=== PATIENT | female | born 1995 | race Caucasian/White ===

== ENCOUNTER → 2023-07-08 15:35 | Outpatient (BNVA) | payer BC, SELFPAY | PROVIDERS: Visit Provider Physician Assistant Surgical ==

== ENCOUNTER → 2023-07-08 15:35 | Outpatient (BNVA) | payer BC, SELFPAY | PROVIDERS: Visit Provider Physician Assistant Surgical ==

== ENCOUNTER 2023-08-04 09:32 | Outpatient (REF) | payer BC, SELFPAY ==
--- NOTE | ~2023-08-04 | XR_ITS ---
EXAMINATION: XR CHEST CLINICAL INFORMATION: Morbid obesity. COMPARISON: None available. TECHNIQUE: 2 views of the chest were obtained. FINDINGS: Normal appearance of the cardiomediastinal silhouette. No focal airspace opacities, pleural effusion or pneumothorax. No acute osseous findings. Visualized upper abdomen is within normal limits. XR/XR chest 2V IMPRESSION: No acute cardiopulmonary findings.
--- NOTE | 2023-08-04 10:30 | ECG_ITS ---
Test Reason : E66.01 Blood Pressure : / mmHG Vent. Rate : 073 BPM Atrial Rate : 073 BPM P-R Int : 140 ms QRS Dur : 100 ms QT Int : 382 ms P-R-T Axes : -03 027 016 degrees QTc Int : 420 ms Normal sinus rhythm Low voltage QRS Borderline ECG No previous ECGs available Referred By: Faustino Gomez Electronically Signed By:Charles Painter
== END 2023-08-04 09:33 | disposition home or self-care (01) ==
LOC: HO.XRAY 09:32
PROVIDERS: Visit Provider Surgery
DX: E66.01 Morbid (severe) obesity due to excess calories (principal); F41.9 Anxiety disorder, unspecified; J45.909 Unspecified asthma, uncomplicated
CPT/HCPCS: 71046; 93005

== ENCOUNTER 2023-08-04 09:32 | Outpatient (AMB) | payer BC, SELFPAY ==
--- NOTE | 2023-08-04 09:35 | A.OFFVIS_ITS ---
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 BMI 40.1 Allergies No Known Allergies Allergy (Verified 08/04/23 10:19) Medication List - Last Reconciled 08/04/23 by Faustino Gomez MD albuterol sulfate 90 mcg/actuation 1 - 2 puffs inhalation Q4-6H PRN cetirizine (Wal-Zyr (cetirizine)) 10 mg PO DAILY PRN citalopram 40 mg PO DAILY HPI HPI Comments History of Present Illness Details Previous weight loss efforts: exercise and self diets Wakes up: 5.45am, sleeps: 9pm Breakfast: occasionally at 7am (muffin) Lunch: 12pm (Salad with feta) Dinner: 6pm (meat, salad, potatoes, rice) Snacks: 3pm (crackers), 8pm (ice cream) Exercise: Has a [employer] bike Fluids: Coffee: 1 cup/day with sugar, tea: none, some soda, juice: occasionally, ETOH: rarely PFSH Medical History (Updated 08/04/23 @ 10:22 by Faustino Gomez MD) Anxiety Asthma Morbid obesity Surgical History (Updated 08/04/23 @ 09:40 by Ivonne Luz CMA) Hx of wisdom tooth extraction Physical Exam Vital Signs: Last Vital Signs Temp 98.0 F 08/04/23 09:41 Pulse 77 08/04/23 09:41 BP 133/74 08/04/23 09:41 Pulse Ox 95 08/04/23 09:41 Oxygen Delivery Method Room Air 08/04/23 09:41 BMI result Body Mass Index 40.6 GI Inspection: Yes normal to inspection and Yes obesity Palpation (GI): Soft to palpation Extrem Right lower extremity: normal to inspection Left lower extremity: normal to inspection Assessment & Plan Assessment & Plan (1) Morbid obesity: Code(s): E66.01 - Morbid (severe) obesity due to excess calories Plan: 1.? Plan for lap sleeve gastrectomy. If diaphragmatic or ventral hernias are present at time of surgery, these will be repaired laparoscopically as well. Risks and complications were discussed in detail including possible conversion to an open procedure, anastomotic leak, bleeding requiring transfusion, small bowel obstruction, , DVT and pulmonary embolism, cardiac, or pulmonary complications, as assisted complications such as anastomotic ulcer, insufficient weight loss and vitamin deficiencies. I emphasized the importance of close follow-up, adherence to instructions and good communication. 2. Nutritional counseling. Start with 2 CELEBRATE REBUILD protein (buy at [facility] [employer]) shakes (ONE scoop EACH in 8oz low fat unsweetened oat milk each) at 7am-9am and 10am-12pm, 2 protein bars (CELEBRATE protein bars, buy at [facility]'s [employer] shop) at 1pm-3pm, HALF protein bar at 4pm-6pm, dinner at 7pm (8 forks of protein and 8 forks of salad/vegetables). So you do 2 protein shakes, 2 protein bars and one meal per day. Meal to include lean meat (beef, fish, pork, turkey, chicken), or greenlandic yogurt, or egg whites, or beans with a salad with olive oil and fruits (berries, pears, apples, kiwi). Avoid salt, breads, potatoes, rice, pasta, desserts. 3. Each shake would be drunk slowly, like coffee in a period of 2 hours. May add your coffee into your shakes if flavors match. 4. Cut each bar in 4 pieces and eat each piece in 30min ?to make each bar last 2 hours. 5. I emphasized the importance of measuring accurately the food portion and measure it when serving the food in plate 6. The meal portions include 8 full-size forks of meat and 8 full-size forks of salad. You always eat the meat portion but you can replace up to 4 forks for salad/vegetables with rice, potatoes or pasta, or a fruit ?if you like. The less you do it the better weight loss will be. 7. One full-size fork is what it can be scooped on the fork without falling aside and not what can be bit with the fork. Use regular forks like those you find in a typical restaurant. 8.? Please send me weight measurements as soon as possible and then once a week. Always include your diet and exercise plan. 9. Alternatively start stationary bike at a resistance level of 4.0 Increase level by 1.0 every 3 min to a max level of 10.0. Stay at this level for 3 min and then return to level 4.0 and repeat same steps until 300 calories are burned. Velocity target is 12mph and heart rate is 145 bpm. Goal is to burn 2000 calories per week on exercise, which means either 300 calories daily, or 400 calories 5 days per week, or 500 calories 4 days per week, or 650 calories 3 days per week. 10.?It is important of avoiding and for at least 18 months postoperatively and has been discussed at the infosession. 11. Goal is to lose at least 1.5-2lbs per week 12. Goal to lose 10% of your weight before surgery, which is about 23lbs. Ultimate weight goal: 210lbs before surgery 13. Please follow the diet plan exactly without any change. If you don't like something about the plan or you feel hungry you need to communicate with me so I can help you revise the plan. You should not change the plan yourself. Orders: Orders Insulin Today E66.01 - Morbid (severe) obesity due to excess calories, F41.9 - Anxiety disorder, unspecified, J45.909 - Unspecified asthma, uncomplicated IRON PROFILE Today E66.01 - Morbid (severe) obesity due to excess calories, F41.9 - Anxiety disorder, unspecified, J45.909 - Unspecified asthma, uncomplicated Comprehensive Met. Panel Today E66.01 - Morbid (severe) obesity due to excess calories, F41.9 - Anxiety disorder, unspecified, J45.909 - Unspecified asthma, uncomplicated Vitamin B12 and Folate Today E66.01 - Morbid (severe) obesity due to excess calories, F41.9 - Anxiety disorder, unspecified, J45.909 - Unspecified asthma, uncomplicated TSH reflex Free T4 Today E66.01 - Morbid (severe) obesity due to excess calories, F41.9 - Anxiety disorder, unspecified, J45.909 - Unspecified asthma, uncomplicated Ferritin Today E66.01 - Morbid (severe) obesity due to excess calories, F41.9 - Anxiety disorder, unspecified, J45.909 - Unspecified asthma, uncomplicated Vitamin D 25-OH Total Today E66.01 - Morbid (severe) obesity due to excess calories, F41.9 - Anxiety disorder, unspecified, J45.909 - Unspecified asthma, uncomplicated US abdomen comp w elastography Today E66.01 - Morbid (severe) obesity due to excess calories, F41.9 - Anxiety disorder, unspecified, J45.909 - Unspecified asthma, uncomplicated FL upper GI w air Today E66.01 - Morbid (severe) obesity due to excess calories, F41.9 - Anxiety disorder, unspecified, J45.909 - Unspecified asthma, uncomplicated Hemoglobin A1c Today E66.01 - Morbid (severe) obesity due to excess calories, F41.9 - Anxiety disorder, unspecified, J45.909 - Unspecified asthma, uncomplicated H Pylori Breath Test Today E66.01 - Morbid (severe) obesity due to excess calories, F41.9 - Anxiety disorder, unspecified, J45.909 - Unspecified asthma, uncomplicated Complete Blood Count Auto Diff Today E66.01 - Morbid (severe) obesity due to excess calories, F41.9 - Anxiety disorder, unspecified, J45.909 - Unspecified asthma, uncomplicated Lipid Panel Today E66.01 - Morbid (severe) obesity due to excess calories, F41.9 - Anxiety disorder, unspecified, J45.909 - Unspecified asthma, uncomplicated Zinc Today E66.01 - Morbid (severe) obesity due to excess calories, F41.9 - Anxiety disorder, unspecified, J45.909 - Unspecified asthma, uncomplicated C Reactive Protein Today E66.01 - Morbid (severe) obesity due to excess calories, F41.9 - Anxiety disorder, unspecified, J45.909 - Unspecified asthma, uncomplicated Vitamin B1 Today E66.01 - Morbid (severe) obesity due to excess calories, F41.9 - Anxiety disorder, unspecified, J45.909 - Unspecified asthma, uncomplicated Vitamin A Today E66.01 - Morbid (severe) obesity due to excess calories, F41.9 - Anxiety disorder, unspecified, J45.909 - Unspecified asthma, uncomplicated XR chest 2V Today E66.01 - Morbid (severe) obesity due to excess calories, F41.9 - Anxiety disorder, unspecified, J45.909 - Unspecified asthma, uncomplicated ECG 12 lead EKG Today E66.01 - Morbid (severe) obesity due to excess calories, F41.9 - Anxiety disorder, unspecified, J45.909 - Unspecified asthma, uncomplicated Referrals Behavioral Health Referral E66.01 - Morbid (severe) obesity due to excess calories, F41.9 - Anxiety disorder, unspecified, J45.909 - Unspecified asthma, uncomplicated Nutrition/Dietitian Referral E66.01 - Morbid (severe) obesity due to excess calories, F41.9 - Anxiety disorder, unspecified, J45.909 - Unspecified asthma, uncomplicated Coding Level of Care Code New Pt Level 5 (93339) Diagnoses Morbid obesity E66.01 Time Spent (min) 60
[2023-08-04 09:41] VITALS: BP 133/74; PULSE 77; TEMP 36.7; O2SAT 95; BMI 40.6
[2023-08-04 10:18] VITALS: BMI 40.0
== END 2023-08-04 10:31 | disposition home or self-care (01) ==
PROVIDERS: Visit Provider Surgery
DX: E66.01 Morbid (severe) obesity due to excess calories (principal); Z68.41 Body mass index [BMI] 40.0-44.9, adult
CPT/HCPCS: 99205

== ENCOUNTER → 2023-08-04 10:30 | Outpatient (BNV) | payer BC, SELFPAY | PROVIDERS: Visit Provider Internal Medicine Cardiovascular Disease | DX: E66.01 Morbid (severe) obesity due to excess calories (principal) | CPT/HCPCS: 93010 ==

== ENCOUNTER 2023-08-13 08:18 | Outpatient (REF) | payer BC, SELFPAY ==
[2023-08-13 08:45] LABS: MANUAL DIFF FLAG NO
[2023-08-13 09:22] LABS: Estimated Average Glucose 94 mg/dL; Hemoglobin A1c % 4.9 % (<6.0)
[2023-08-13 10:00] LABS: Alanine Aminotransferase 18 U/L (0-31); Albumin Level 4.2 g/dL (3.5-5.0); Alkaline Phosphatase 98 U/L (39-117); Anion Gap 14 (12-20); Aspartate Amino Transferase 18 U/L (5-31); Blood Urea Nitrogen 13 mg/dL (9-16); C Reactive Protein 0.34 mg/dL (< or = 0.50); Calcium 9.2 mg/dL (8.4-10.2); Carbon Dioxide 24 mmol/L (22-29); Chloride 105 mmol/L (96-108); Cholesterol 162 mg/dL (<200); Estimated Glomerular Filt Rate > 60; Glucose Random 88 mg/dL (60-115); HDL Cholesterol 59 mg/dL (>40); Iron 128 mcg/dL (30-160); LDL Cholesterol Calculated 90 mg/dL (<100); Percent Iron Saturation 34 % (15-50); Potassium 4.5 mmol/L (3.3-5.1); Sodium 138 mmol/L (135-145); Total Iron Binding Capacity 377 mcg/dL (228-428); Total Protein 7.5 g/dL (6.5-8.0); Triglycerides 65 mg/dL (<150); Unsaturated Iron Binding 249 ug/dL
[2023-08-13 10:03] LABS: Ferritin 22 ng/mL (10-122); Insulin 6 uU/mL (2-29); Vitamin D 25-OH Total 16.8 ng/mL (>30)
[2023-08-13 10:09] LABS: Folate 10.5 ng/mL (> or = 4.0); Vitamin B12 627 pg/mL (200-900)
[2023-08-13 11:07] LABS: Basophils Percent Auto 0.2 % (0-2); Eosinophils Absolute Auto 0.1 X10*3/uL (0.0-0.4); Eosinophils Percent Auto 0.6 % (0-4); Hemoglobin 12.9 g/dl (12.0-16.0); Imm Gran Abs Auto 0.03 X10*3/uL (0.00-0.03); Imm Gran Pct Auto 0.3 % (0.0-0.4); Lymphocytes Absolute Auto 2.4 X10*3/uL (1.2-4.9); Lymphocytes Percent Auto 25.4 % (20-40); Mean Corpuscular HGB Conc 33.9 g/dl (31.0-35.0); Mean Corpuscular Volume 85.4 fL (80.0-98.0); Mean Platelet Volume 10.6 fL (9.4-12.3); Monocytes Absolute Auto 0.6 X10*3/uL (0.1-1.2); Monocytes Percent Auto 6.2 % (2-11); Neutrophils Absolute Auto 6.4 x10*3/uL (2.0-8.3); Neutrophils Percent Auto 67.3 % (45-73); Platelet Count 261 X10*3/uL (160-400); Red Blood Count 4.45 X10*6/uL (4.20-5.50); Red Cell Distribution Width 12.8 % (11.0-16.0); White Blood Count 9.5 X10*3/uL (4.8-10.8)
[2023-08-17 04:58] LABS: Vitamin B1 <6 nmol/L (8-30)
[2023-08-18 19:54] LABS: Vitamin A 41 mcg/dL (38-98)
[2023-08-19 16:23] LABS: Zinc 72 mcg/dL (60-130)
== END 2023-08-13 08:19 | disposition home or self-care (01) ==
LOC: HO.LAB 08:18
PROVIDERS: Visit Provider Surgery
DX: E66.01 Morbid (severe) obesity due to excess calories (principal); J45.909 Unspecified asthma, uncomplicated; F41.9 Anxiety disorder, unspecified
CPT/HCPCS: 36415; 80053; 80061; 82306; 82607; 82728; 82746; 83036; 83525; 83540; 84425; 84443; 84590; 84630; 85025; 86140

== ENCOUNTER 2023-08-22 08:12 | Outpatient (AMB) | payer BC, SELFPAY ==
--- OUTSIDE RECORDS SUMMARY | 2023-08-22 08:16 | XMS_ITS | Continuity of Care Document ---
Author Name Unknown Organization [facility] Address [address] [place] [address]- Care Team Providers Care Home Appliance Installer Name Role Phone Lindsey Caceres NP Primary Care Physician [phone] Encounter [facility] Date(s): 05/18/20 - 05/18/[address] [address]- [facility] Encounter Diagnosis Ankle sprain(Final) - 05/18/20 Discharge Disposition: A-D/C Home Attending Physician: Prateek Razo MD Admitting Physician: Prateek Razo MD Referring Physician: Not on Staff, Referring MD Allergies, Adverse Reactions, Alerts No Known Medication Allergies Medications albuterol 90 mcg/inh inhalation aerosol 0 Refills, Maintenance Start Date: 03/08/20 Status: Ordered citalopram 40 mg oral tablet 40 mg, 1, tablet, By Mouth, Daily, # 30 tablet, Refills 0, Maintenance, 03/08/20 20:43:00 EDT Start Date: 03/08/20 Status: Ordered Flovent 110 mcg Inhaler HFA 1, puffs, Inhalation, 2 times a day, Refills 0, Maintenance, 03/08/20 20:43:00 EDT, Inhaler Start Date: 03/08/20 Status: Ordered ZyrTEC 10 mg oral tablet 1 tablet = 10 mg, By Mouth, Daily, # 30 tablet, 0 Refills, Maintenance, 05/18/20 18:25:00 EDT, Tablet Start Date: 05/18/20 Status: Ordered Results Radiology Reports * Exam Date Time Procedure Performing Provider Status 05/18/20 8:47 PM Foot Min 3 Views Right Abhilash Norman; Daryn (Verified) Notes: (Foot Min 3 Views Right) Reason For Exam: Pain RESULT: Foot Min 3 Views Right Ankle Min 3 Views Right, Foot Min 3 Views Right Hx of Present Illness: Pt states she just got new ortho boot on left foot and was off balance causing her to roll right foot. Now swelling and pain to right foot. COMPARISON: None. FINDINGS: No fracture or dislocation involving the foot or ankle. Talar dome is intact. No abnormality of the ankle mortise. No significant arthritic change. Mild soft tissue swelling around the ankle. IMPRESSION: Mild soft tissue swelling without evidence of fracture or dislocation. WSN: [id number] Ordering Physician: Jim Novak Dictated By: Claudy Ken DO Dictated Date/Time: 05/18/20 8:55 pm Reviewed By: Claudy Ken DO Signed By: Claudy Ken DO Signed Date/Time: 05/18/20 8:55 pm Transcribed By: SUDEEP Transcribed Date/Time: 05/18/20 8:53 pm * Exam Date Time Procedure Performing Provider Status 05/18/20 8:47 PM Ankle Min 3 Views Right Osman Norman ole L; Auth (Verified) Notes: (Ankle Min 3 Views Right) Reason For Exam: Pain RESULT: Ankle Min 3 Views Right Ankle Min 3 Views Right, Foot Min 3 Views Right Hx of Present Illness: Pt states she just got new ortho boot on left foot and was off balance causing her to roll right foot. Now swelling and pain to right foot. COMPARISON: None. FINDINGS: No fracture or dislocation involving the foot or ankle. Talar dome is intact. No abnormality of the ankle mortise. No significant arthritic change. Mild soft tissue swelling around the ankle. IMPRESSION: Mild soft tissue swelling without evidence of fracture or dislocation. WSN: [id number] Ordering Physician: Jim Novak Dictated By: Claudy Ken DO Dictated Date/Time: 05/18/20 8:55 pm Reviewed By: Claudy Ken DO Signed By: Claudy Ken DO Signed Date/Time: 05/18/20 8:55 pm Transcribed By: SUDEEP Transcribed Date/Time: 05/18/20 8:53 pm Vital Signs Most recent to oldest [Reference Range]: 1 2 Height 163 cm (05/18/20 6:22 PM) Weight 106 kg (05/18/20 6:22 PM) Oxygen Saturation [94-100 %] 100 % (05/18/20 9:32 PM) 100 % (05/18/20 6:22 PM) Pulse Rate [55-90 bpm] 102 bpm *H* (05/18/20 9:32 PM) 78 bpm (05/18/20 6:22 PM) Blood Pressure [90-138/55-84 mm Hg] 134/ 80mm Hg (05/18/20 9:32 PM) 128/72mm Hg (05/18/20 6:22 PM) Respiratory Rate [16-30 br/min] 18 br/mi n (05/18/20 9:32 PM) 19 br/min (05/18/20 6:22 PM) Temperature [96.8-100.4 DegF] 98.6 DegF (05/18/20 6:22 PM) Mode of Delivery (Oxygen) Room air (05/18/20 9:32 PM) Room air (05/18/20 6:22 PM) Blood pressure sites Arm, left (05/18/20 9:32 PM) Arm, left (05/18/20 6:22 PM) Temperature Route Temporal (05/18/20 6:22 PM) Dry Weight 106 kg (05/18/20 6:22 PM) Weight Obtained Via Patient/family state d (05/18/20 6:22 PM) Dry Weight Obtained Via Patient/family s tated (05/18/20 6:22 PM) Social History Social History Type Response Smoking Status Never (less than 100 in lifetime) entered on: 05/18/20 Sex
--- OUTSIDE RECORDS SUMMARY | 2023-08-22 08:16 | XMS_ITS | Continuity of Care Document ---
Author Name Unknown Organization [facility] Address [address] [place] [address]- Care Team Providers Care Study Abroad Advisor Name Role Phone Bianca TAFOYA, Jelly Long Primary Care Physician Encounter [facility] [place] Date(s): 09/29/20 - 10/29/20 [facility] [address] [place] [id number] Attending Physician: Kevin Luther Admitting Physician: AdmtrKevin Referring Physician: Admtr, Ar8 Allergies, Adverse Reactions, Alerts No Known Medication [...] EDT, Tablet Start Date: 05/18/20 Status: Ordered Social History Social History Type Response Smoking Status Never (less than 100 in lifetime) entered on: 05/18/20 Sex
--- OUTSIDE RECORDS SUMMARY | 2023-08-22 08:16 | XMS_ITS | Continuity of Care Document ---
Author Name Unknown Organization [facility] Address [address] [place] [id number]- Care Team Providers Care Security Risk Analyst Name Role Phone Bianca TAFOYA, Jelly Long Primary Care Physician [place] [facility] [place] 09/[place] - 08/16/21 [facility] [address] [place] [address]- Discharge Disposition: A-D/C Home Attending Physician: David Childs MD Admitting Physician: David Childs MD Referring Physician: Lindsey Caceres NP Allergies, Adverse Reactions, Alerts No Known Medication [...]
--- OUTSIDE RECORDS SUMMARY | 2023-08-22 08:16 | XMS_ITS | Continuity of Care Document ---
Author Name Unknown Organization [facility] Address [address] [place] [address]- Care Team Providers Care Assembly Line Leader Name Role Phone Bianca TAFOYA, Jelly Long Primary Care Physician Encounter [facility] Date(s): 04/12/21 - 04/12/[address] [address]- Discharge Disposition: A-D/C Home Attending Physician: Dilip Bond MD Admitting Physician: Dilip Bond MD Referring Physician: Not on Staff, Referring [...] EDT, Tablet Start Date: 05/18/20 Status: Ordered Vital Signs Most recent to oldest [Reference Range]: 1 2 3 Height 163 cm (04/12/21 6:33 PM) 163 cm (04/12/21 4:43 PM) 163 cm (04/12/21 3:07 PM) Weight 108.9 kg (04/12/21 6:33 PM) 108.9 kg (04/12/21 4:43 PM) 108.9 kg (04/12/21 3:07 PM) Oxygen Saturation [94-100 %] 98 % (04/12/21 6:33 PM) 99 % (04/12/21 4:43 PM) 99 % (04/12/21 3:07 PM) Pulse Rate [55-90 bpm] 86 bpm (04/12/21 6:33 PM) 79 bpm (04/12/21 4:43 PM) 98 bpm *H* (04/12/21 3:07 PM) Body Mass Index [18.5-24.99] 40.99 *>HHI* (04/12/21 6:33 PM) 40.99 *>HHI* (04/12/21 4:43 PM) Blood Pressure [90-138/55-84 mm Hg] 108/74mm Hg (04/12/21 6:33 PM) 121/71mm Hg (04/12/21 4:43 PM) 122/87mm Hg (04/12/21 3:07 PM) Respiratory Rate [16-30 br/min] 18 br/min (04/12/21 4:43 PM) 16 br/min (04/12/21 3:07 PM) Temperature [96.8-100.4 DegF] 98.1 DegF (04/12/21 3:07 PM) Mode of Delivery (Oxygen) Room air (04/12/21 6:33 PM) Room air (04/12/21 4:43 PM) Room air (04/12/21 3:07 PM) Blood pressure sites Arm, left (04/12/21 6:33 PM) Arm, left (04/12/21 4:43 PM) Temperature Route Oral (04/12/21 3:07 PM) Dry Weight 108.9 kg (04/12/21 6:33 PM) 108.9 kg (04/12/21 4:43 PM) 108.9 kg (04/12/21 3:07 PM) Weight Obtained Via Standing scale (04/12/21 3:07 PM) Social History Social History Type Response Smoking Status Never (less than 100 in lifetime) entered on: 05/18/20 Sex
--- NOTE | 2023-08-22 11:10 | MHC.OFFVISWM ---
Intake VS Expanded 08/22/23 11:16 Height 5 ft 4 in Weight 234 lb 6 oz BMI 40.2 Body Fat % 51.5 Body Fat Mass 119.2 Fat Free Mass 115.4 Visceral Fat Rating 21 Body Water % 33.3 Body Water Mass 78.1 Basal Metabolic Rate/Score 1,478 Intake Visit Reasons: TV Follow Up SWL - 1ST Allergies No Known Allergies Allergy (Verified 08/04/23 10:19) HPI TV Follow Up SWL - 1ST HPI Details Start time: 11.00am, End time: 11.23am ?I spent 18 minutes speaking with the patient on the phone plus an additional 5 minutes reviewing and updating records for a total of 23 minutes HPI Comments History of Present Illness Details Is doing 2 Celebrate Rebuild protein shakes (1 scoop each in 8oz low fat milk), 2 Celebrate protein bars and one meal (8 forks of protein and 8 forks of salad or vegetables) Exercise: walking. Bought the [employer] bike [facility] Medical History (Updated 08/19/23 @ 12:14 by Faustino Gomez MD) Anxiety Asthma Morbid obesity Surgical History (Updated 08/04/23 @ 09:40 by Ivonne Luz CMA) Hx of wisdom tooth extraction Assessment & Plan Assessment & Plan (1) Morbid obesity: Code(s): E66.01 - Morbid (severe) obesity due to excess calories Plan: 1. Please change the nutritional plan to 2 Celebrate Rebuild protein shakes (1 scoop each in 8oz low fat unsweetened almond milk), 2 Celebrate protein bars and one meal (8 forks of protein and 8 forks of salad or vegetables). 2. Please let me know if the shakes remain thick with the almond milk and I will give you an alternative plan with low fat milk 3. Exercise: continue walking. When the Peloton bike arrives, start at a resistance level of 4.0 Increase level by 1.0 every 3 min to a max level of 10.0. Stay at this level for 3 min and then return to level 4.0 and repeat same steps until 300 calories are burned. Velocity target is 12mph and heart rate is 145 bpm. Goal is to burn 2000 calories per week on exercise 4. Continue to send me weight measurements weekly on Tuesdays Telehealth Telehealth Location of provider rendering services: practice address Location of patient: address on file Patient Identification confirmed using: Name, : Yes Telehealth method: voice only Patient verbally consented to treatment: Yes Patient verbally consented to billing insurance company: Yes Patient informed of any privacy concerns related to visit: Yes Minutes spent on Phone/Video with Pt.: 23 Coding Level of Care Code Tele Est Pt Level 3 (77783) Diagnoses Morbid obesity E66.01 Time Spent (min) 23
[2023-08-22 11:16] VITALS: BMI 40.2
== END 2023-08-22 11:24 | disposition home or self-care (01) ==
LOC: HO.HBS 08:12
PROVIDERS: Visit Provider Surgery
DX: E66.01 Morbid (severe) obesity due to excess calories (principal); Z68.41 Body mass index [BMI] 40.0-44.9, adult
CPT/HCPCS: 99443

== ENCOUNTER → 2023-08-22 08:12 | Outpatient (BNVA) | payer BC, SELFPAY | PROVIDERS: Visit Provider Surgery ==

== ENCOUNTER 2023-09-01 14:03 | Outpatient (AMB) | payer OTHER, SELFPAY ==
--- NOTE | 2023-09-01 13:18 | A.OFFVIS_ITS ---
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 Pt shares her health is a major motivator for surgery She lives with her 6 yo daughter and fiance . Notices daughter is developing some poor eating habits. Exercise: got a [employer] bike which is being delivered next week ; Peloton classes on the diane [employer] online classes: none yet Dietary counseling reduction Who buys your food self and spouse Who prepares/cooks your food self and spouse (cooks the protion) Meal frequency regular: breakfast (muffin , coffee w flavored syrup), lunch (salad ), dinner (large portions - protein) and snacks Lifestyle Emotional Eating Reports stress, depression, anxiety, comfort/relaxation and boredom Eating out 1-3 times/week Food frequency Restaurants/fast foods: several times weekly (3x per week ), Water: daily (40oz ), Soda: daily, Juice: never and Coffee: daily Diagnosis Nutrition problem #1 overweight/obesity As related to (etiology) #1 excess energy intake and physical inactivity As evidenced by (sign/symptom) #1 high BMI Monitoring/Goals Nutrition problem monitoring total energy intake, level of knowledge/skill, total PRO intake, total CHO intake and weight Outcome progress progressing Learning/Education Readiness to learn excellent Stages of change action Most Recent Diabetes Results: Cholesterol 162 mg/dL (<200) 08/13/23 HDL Cholesterol 59 mg/dL (>40) 08/13/23 Triglycerides 65 mg/dL (<150) 08/13/23 Creatinine 0.75 mg/dL (0.5-1.4) 08/13/23 Blood Urea Nitrogen 13 mg/dL (9-16) 08/13/23 Sodium 138 mmol/L (135-145) 08/13/23 Potassium 4.5 mmol/L (3.3-5.1) 08/13/23 Chloride 105 mmol/L (96-108) 08/13/23 Carbon Dioxide 24 mmol/L (22-29) 08/13/23 Calcium 9.2 mg/dL (8.4-10.2) 08/13/23 AST 18 U/L (5-31) 08/13/23 ALT 18 U/L (0-31) 08/13/23 Total Protein 7.5 g/dL (6.5-8.0) 08/13/23 Albumin 4.2 g/dL (3.5-5.0) 08/13/23 PFSH Medical History (Updated 08/19/23 @ 12:14 by Faustino Gomez MD) Anxiety Asthma Morbid obesity Surgical History (Updated 08/04/23 @ 09:40 by Ivonne Luz CMA) Hx of wisdom tooth extraction Assessment & Plan Assessment & Plan (1) Morbid obesity: Code(s): E66.01 - Morbid (severe) obesity due to excess calories Plan nutrition clearance pending completion of online classes Telehealth Telehealth Location of provider rendering services: practice address Location of patient: address on file Patient Identification confirmed using: Name, : Yes Telehealth method: video Patient verbally consented to treatment: Yes Patient verbally consented to billing insurance company: Yes Patient informed of any privacy concerns related to visit: Yes Minutes spent on Phone/Video with Pt.: 20 Coding Level of Care Code Nutr Indiv Intake (70860) Diagnoses Morbid obesity E66.01 Time Spent (min) 20
[2023-09-01 13:25] VITALS: BMI 39.5
== END 2023-09-01 14:07 | disposition home or self-care (01) ==
LOC: HO.HBS 14:03
PROVIDERS: Visit Provider Dietitian, Registered
DX: E66.01 Morbid (severe) obesity due to excess calories (principal)

== ENCOUNTER → 2023-09-01 14:03 | Outpatient (BNVA) | payer OTHER, SELFPAY | PROVIDERS: Visit Provider Dietitian, Registered | DX: E66.01 Morbid (severe) obesity due to excess calories (principal); Z68.39 Body mass index [BMI] 39.0-39.9, adult | CPT/HCPCS: 97802 ==

== ENCOUNTER 2023-09-03 11:35 | Day surgery (SDC) | payer OTHER, SELFPAY ==
--- NOTE | 2023-08-29 23:48 | MHC.SHP ---
Pre-Procedural Eval Section A Date of Service: 08/29/23 The patient is an INPATIENT: No The History & Physical has been completed within 30 days and I have reviewed it.: Yes Section B Chief Complaint: Morbid (severe) obesity due to excess calories Relevant Family History (Specify if Yes): No Relevant Social History: None Present Medications: None Medical History: No relevant PMH History of Previous Operations: No relevant previous surgery Allergies: Allergies Allergy/AdvReac Type Severity Reaction Status Date / Time No Known Allergies Allergy Verified 08/04/23 10:19 Review of Systems Sugical H&P ROS: Negative: Constitution, Cardiovascular, Respiratory, Neurological, Psychiatric, Hem-Onc, Allergic/Immunologic, Gastrointestinal, Genitourinary, Musculoskeletal, Integumentary, Endocrine and Eyes/Ears/Nose/Throat Exam Surgical H&P Exam: Normal: HEENT, Normal: Heart, Normal: Lungs, Normal: Extremities, Normal: Abdomen, Normal: Skin and Normal: Neurological Plan Diagnosis/Plan: Unchanged (EGD to assess for esophagitis. Risks for perforation and bleeding were discussed with patient. She is in agreement with the plan) I have reviewed the history and physical and performed a pertinent physical examination on my patient. No changes have occurred unless specified. Time Spent With Patient Time: Total time managing care of this patient today ____ minutes.
--- NOTE | 2023-09-02 10:15 | P.CONAN_ITS ---
Documented by User: Trudy Wilks NP 09/02/23 10:16 HPI - Anesthesia Eval Consult details Narrative: 28yo F for Upper Endoscopy [facility] Active Problems Active Problems: All Active Problems (Updated 08/19/23 @ 12:14 by Faustino Gomez MD) Vitamin B1 deficiency (Acute) Vitamin D deficiency (Acute) Anxiety (Acute) Asthma (Acute) Morbid obesity (Acute) Past Medical History Medical History Anxiety Asthma Morbid obesity Surgical History Surgical History Hx of wisdom tooth extraction Social History Social History Patient Tobacco Use Status: Never used Tobacco Use of substances other than those prescribed or required for medical reasons: No Are you DNR?: No Advance Directives: No Advance Directives Information Provided: Yes Meds Allergies Allergy/AdvReac Type Severity Reaction Status Date / Time No Known Allergies Allergy Verified 08/04/23 10:19 Home Medications Medication Instructions Recorded Confirmed Last Taken Type albuterol sulfate 90 mcg/actuation 1 - 2 puff inhalation Q4-6H PRN 08/04/23 08/04/23 Unknown History aerosol inhaler cetirizine 10 mg capsule (Wal-Zyr 10 mg PO DAILY PRN 08/04/23 08/04/23 Unknown History (cetirizine)) citalopram 40 mg tablet 40 mg PO DAILY 08/04/23 08/04/23 Unknown History Exam Pertinent Lab Results Pertinent Lab Results: Laboratory Tests 08/13/23 08:43 WBC 9.5 Hgb 12.9 Hct 38.0 Plt Count 261 Sodium 138 Potassium 4.5 Chloride 105 Carbon Dioxide 24 BUN 13 Creatinine 0.75 Narrative Narrative: EKG 07/2023 Vent. Rate : 073 BPM Atrial Rate : 073 BPM P-R Int : 140 ms QRS Dur : 100 ms QT Int : 382 ms P-R-T Axes : -03 027 016 degrees QTc Int : 420 ms Normal sinus rhythm Low voltage QRS Borderline ECG No previous ECGs available Assessment and Plan Assessment Anesthesia Assessment: Chart Reviewed Documented by User: Khadijah Tracey MD 09/03/23 12:13 PMFSH Past Medical History Medical History Anxiety Asthma Morbid obesity Family History Family history of problems with anesthesia: No Surgical History Surgical History Hx of wisdom tooth extraction History of Problems with Anesthesia: No Social History Social History Patient Tobacco Use Status: Never used Tobacco Use of substances other than those prescribed or required for medical reasons: No Are you DNR?: No Advance Directives: No Advance Directives Information Provided: Yes Meds Allergies Allergy/AdvReac Type Severity Reaction Status Date / Time No Known Allergies Allergy Verified 08/04/23 10:19 Home Medications Medication Instructions Recorded Confirmed Last Taken Type albuterol sulfate 90 mcg/actuation 1 - 2 puff inhalation Q4-6H PRN 08/04/23 08/04/23 Unknown History aerosol inhaler cetirizine 10 mg capsule (Wal-Zyr 10 mg PO DAILY PRN 08/04/23 08/04/23 Unknown History (cetirizine)) citalopram 40 mg tablet 40 mg PO DAILY 08/04/23 08/04/23 Unknown History Exam Airway Mallampati Class: III TM Dist: >3cm Neck ROM: Full Heart: rrr Lungs: cta Assessment and Plan Assessment Anesthesia Assessment: Anesthesia Plan Discussed Final Anesthetic Review Family History of Problems with Anesthesia: No History of Problems with Anesthesia: No NPO: Yes ASA Class: III Final Preanesthetic Review: No Changes in Pt Med Stat, Meds/Allgs Chart Reviewed, Consent Obtained/Reviewed and Anes Risks/Benef Reviewed Patient Risk: Intermediate Procedure Risk: Low Anesthetic Plan Anesthetic Plan: GA and MAC: Disposition: Standard PACU
[2023-09-03 12:00] VITALS: BMI 39.5
[2023-09-03 12:27] VITALS: BP 127/74; PULSE 74; RESP 16; TEMP 36.8; O2SAT 100
--- NOTE | 2023-09-03 12:30 | P.BOP_ITS ---
Brief Operative Note Date of Service: 09/03/23 Pre-op diagnosis: GERD Post-op diagnosis: same Procedure: PROCEDURE DATE: 09/03/2023 PREOPERATIVE DIAGNOSIS: GERD POSTOPERATIVE DIAGNOSIS: ?Same as above. 1) small hiatal hernia PROCEDURE: Psymgydj-lvaxst-[id number] with biopsies Surgeon: ?Jac Gomez M.D.. Ph.D. Toilet And Laundry Soap Supervisor: None ? Anesthesia: IV sedation Estimated blood loss: ?Minimal FINDINGS AND PROCEDURE: ? OPERATIVE INDICATIONS: ?The patient is a 28 year old female known to me who is interested in bariatric surgery. The patient has GERD and I would like to assess for esophagitis. Based on this information I recommended an upper endoscopy to evaluate the patient's symptoms. Risks and complications of the surgery were discussed with the patient in advance particularly the possibility of pe rforation or bleeding that may require surgical intervention. The patient understood the risks and was in agreement with the plan. ? PROCEDURE: After informed consent was obtained by the patient, the patient was ?transferred to the Operating Room and was placed in the supine position.? After successful induction of IV sedation, a mouth block was inserted and the patient was placed in the left lateral decubitus position. An upper endoscopy was performed next, the oropharynx and esophagus appeared within the normal limits. There was a small 2cm hiatal hernia. The z-line was smooth. Two biopsies were obtained from the distal esophagus 2-3 cm proximal to the GE junction and two additional biopsies from the GE junction. The stomach was entered and it appeared to be of normal size. There was no gastritis at distal antrum. There was no stricture or ulcer. A biopsy was obtained from the distal antrum and one from gastric fundus. No significant bleeding was noted from any of the biopsy sites. The scope was then advanced into the duodenum which appeared to be normal as well. At that point the duodenum ?and the stomach were decompressed and the scope was withdrawn from the patient's mouth. The patient extubated and was transferred in stable condition to the Recovery Room for further care. I was present and performed all steps of the procedure. There were no residents to assist with this case. Jac Gomez M.D., Ph.D. Surgeon: Faustino Gomez MD Anesthesia: MAC Was an Toilet And Laundry Soap Supervisor used for this Procedure?: No Estimated blood loss (mL): 0 IV fluids (mL): 400 Urine output (mL): 0 (No Chandler to record output) Pathology: other (1) GE junction x2, 2) distal esophagus x2, 3) fundus x1, antrum x1) Condition: stable Disposition: PACU
[2023-09-03] MEDS: Lactated Ringers 1,000 ML 80 ML IVCONT (12:33)
[2023-09-03 12:35] LABS: UPreg QC Valid YES; Urine Pregnancy NEGATIVE (NEGATIVE)
[2023-09-03 13:38] VITALS: BP 116/70; PULSE 81; RESP 16; TEMP 36.6; O2SAT 97
[2023-09-03 13:53] VITALS: BP 122/80; PULSE 68; RESP 14; O2SAT 99
[2023-09-03 14:03] VITALS: BP 125/82; PULSE 70; RESP 14; TEMP 36.1; O2SAT 99
== END 2023-09-03 14:08 | disposition home or self-care (01) ==
PROVIDERS: Nurse Practitioner; Visit Provider Surgery
PROC: 0DJ08ZZ Inspection of Upper Intestinal Tract, Via Natural or Artificial Opening Endoscopic (ICD-10-PCS; CPT 43235; principal; 2023-09-03 13:40)
DX: K21.9 Gastro-esophageal reflux disease without esophagitis (principal); K44.9 Diaphragmatic hernia without obstruction or gangrene; E66.01 Morbid (severe) obesity due to excess calories; Z68.41 Body mass index [BMI] 40.0-44.9, adult; F41.9 Anxiety disorder, unspecified; J45.909 Unspecified asthma, uncomplicated; E55.9 Vitamin D deficiency, unspecified; E51.9 Thiamine deficiency, unspecified; Z79.899 Other long term (current) drug therapy
CPT/HCPCS: 43239; 81025; 88305; 88342; J1596; J2250; J2704

== ENCOUNTER → 2023-09-03 11:35 | Outpatient (BNV) | payer OTHER, SELFPAY | PROVIDERS: Visit Provider Surgery | DX: K21.9 Gastro-esophageal reflux disease without esophagitis (principal) | CPT/HCPCS: 43239 ==

== ENCOUNTER 2023-09-04 10:27 | Outpatient (REF) | payer OTHER, SELFPAY ==
--- NOTE | ~2023-09-04 | US_ITS ---
EXAMINATION: US COMPLETE ABDOMEN WITH LIVER ELASTOGRAPHY CLINICAL INFORMATION: Morbid obesity. COMPARISON: None available. TECHNIQUE: Real-time imaging of the abdominal viscera. Noninvasive ultrasound liver fibrosis assessment is performed using Eduardo ElastPQ point quantification shear wave elastography (2D-SWE) with a C5-2 MHz transducer. Multiple elastography samples are obtained. FINDINGS: PANCREAS: Normal. The visualized pancreatic head and body are normal in appearance. The remainder of the pancreas is obscured from visualization by the overlying bowel gas. ABDOMINAL AORTA: The proximal, middle, and distal aortic segments are normal in caliber. INFERIOR VENA CAVA: Visualized portions are normal. LIVER: Liver has normal size and contour. On subjective assessment, the parenchymal echotexture is in the normal range with well-preserved echogenicity of the portal venous pina and good acoustic penetration through the liver to allow visualization of the diaphragm The right lobe measures 15.3 cm in length (image 38/112). The left lobe measures 12.2 cm in length (image 17/112). Portal flow is normal Shear wave liver elastography median stiffness is 1.58 m/s (reference: normal median stiffness is 1.3 m/s or less). IQR/median stiffness to assess sampling precision is 0.15 (reference: good quality data set is IQR/median stiffness of 0.15 or less). GALLBLADDER: The gallbladder is physiologically distended without evidence of stones, sludge, wall thickening or pericholecystic fluid. A gallbladder polyp is < 0.5 cm. COMMON BILE DUCT: Normal in caliber measuring 0.4 cm in diameter. RIGHT KIDNEY: Normal. No hydronephrosis. No renal calculi or focal parenchymal lesions. The kidney measures 11.3 cm in maximum dimension. LEFT KIDNEY: Normal. No hydronephrosis. No renal calculi or focal parenchymal lesions. The kidney measures 11 cm in maximum dimension. SPLEEN: Normal. The spleen measures 11.5 cm in maximum dimension. FREE FLUID: None. US/US abdomen comp w elastography IMPRESSION: * Liver has a normal appearance on subjective review of the grayscale images. The elastography reveals a median stiffness of 1.58 m/s, which rules out compensated advanced chronic liver disease. * Small gallbladder polyp is present. REFERENCE: Society of Radiologists in Ultrasound Liver Stiffness Thresholds (2020): LIVER STIFFNESS THRESHOLDS: *Liver Stiffness equal or less than 1.3 m/s: High probability of being normal. *Liver Stiffness less than 1.7 m/s: In the absence of other known clinical signs, rules out compensated advanced chronic liver disease. *Liver Stiffness 1.7-2.1 m/s: Suggestive of compensated advanced chronic liver disease but need further test for confirmation. *Liver Stiffness over 2.1 m/s: Rules in compensated advanced chronic liver disease. *Liver Stiffness over 2.4 m/s: Suggestive of clinically significant portal hypertension. QUALITY OF DATA SET: *IQR/Median value equal or less than 0.15 implies a quality data set. *IQR/Median value over 0.15 implies a poor quality data set. OTHER CONSIDERATIONS: The stage of liver fibrosis may be overestimated in the setting of acute hepatitis, liver inflammation, elevated liver function tests, hepatic vascular congestion, obstructive cholestasis, non-fasting state, and infiltrative diseases such as amyloidosis and lymphoma. In some patients with NAFLD, the liver stiffness thresholds for compensated advanced chronic liver disease may be lower. In causes other than viral hepatitis and NAFLD, liver stiffness thresholds are not well established.
== END 2023-09-04 10:28 | disposition home or self-care (01) ==
LOC: HO.US 10:27
PROVIDERS: Visit Provider Surgery
DX: E66.01 Morbid (severe) obesity due to excess calories (principal); J45.909 Unspecified asthma, uncomplicated; F41.9 Anxiety disorder, unspecified
CPT/HCPCS: 76705; 76981

== ENCOUNTER 2023-09-04 11:18 | Outpatient (AMB) | payer OTHER, SELFPAY ==
--- NOTE | 2023-09-04 11:21 | MHC.WMTHER ---
Intake Intake Visit Reasons: VIDEO Intake Allergies No Known Allergies Allergy (Verified 08/04/23 10:19) PFSH Medical History Anxiety Asthma Morbid obesity Surgical History Hx of wisdom tooth extraction Social History Patient Tobacco Use Status: Never used Tobacco Behavioral Health Assessment Weight Management Therapy Therapy Notes Details PT is a 28 year old female, who presents for initial assessment for Weight management program. PT reports a history of anxiety and been taking citalopram 40Mg consistently since 2018 with good results. PT states she has never in counseling and ther eis no hx of inpatient or [facility] level of care treatment for MH. There is no history of safety concerns and substance use. Tri the other hand, PT disclosed a history of comfort eating, however since started the program the support and education has been helpful for her to have steady meals and feel read, which is causing her not to engage in snacking as happened before. PT scored low in PHQ-9 indicating no Sx od depression and scores from BES lower risk for binge eating. Mental status exam indicate funtioning is within normal limits suggesting there is no impediment to move forward wit surgery. PT is cleared from standpoint. Presenting Concerns Referral Source WMP. Provider. Reason for referral Completion of behavioral health assessment as part of process for weight-loss surgery. Precipitating Event Obesity. Living Situation Current Living Situation Rent At risk of losing current housing? No Satisfied with current living situation? Yes Comments Pt lives with melvinaance and 6 y/o daughter. Food/Weight/Diet Expectations of change Initial goal to lose 10% of her weight before surgery, which is about 23lbs. Ultimate weight goal: 210lbs before surgery. - She's 230Lbs today. She wants to be at 150-160Lgs. History/Relationship with food Used to snack all day, and overeat when eating a formal meal. Used to skip breakfast. At times she was eating food because of comfort not because she needed. History/Relationship with weight Always very athletic and was 150Lbs at max. Then after 6 years ago, losing her father and mother's health issues, she developed emotional eating habits. History/Relationship with dieting Dietary pills, intermittent fasting, eat healthy/ self-diets. Binge Eating Do you frequently eat large amounts of food in short periods of time, not feeling physically hungry? Yes Do you feel out of control when you eat a large amount of food in a short period of time? Yes Do you eat large amounts of food rapidly and typically alone? Yes Night Eating Do you wake up at least once during the night to eat? No If you wake up in the night, do you find that it is necessary to eat something in order to fall back asleep? No Do you have little or no appetite in the morning and feel very hungry in the evening, often overeating between dinner and when you go to bed? Yes Social History Family history and relationship PT is engaged to daughter's father. They have been together for 8 years. She has 5 siblings Dad , mother alive. 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 Helps her mother when in need due to her medical issues. Developmental history and status None reported. Social support Partner, mother, siblings. Community support Providers. Sikhism/Spirituality None. Cultural/Ethnic information . Iris/estonian. Legal Involvement and History Current or historical involvement with the legal system? None reported. Education Highest grade completed Some college. Finished certificate program in criminal justice. Currently enrolled in educational program? No Interested in further educational program? Yes Educational Interests/Skills Wants to go back to school for nursing. 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 No Meaningful activities Family activities. Go outside, go to the beach. Travel. Get her nails done. Financial Situation Describe current financial situation Comfortable Financial assistance? None Service Service? No Mental Health and Addiction Treatment Current/Past substance abuse? No Current/Past addictive behavior concerns? No Psychiatric history Denies ever been in counseling. Her PCP prescribes her with Citalopram 40mg for anxiety, since 2013. Stop for a while and then re-started on 2018 after dad . Denies ever been in counseling and/or inpatient for mental health. Reports no history of current safety concern round self/other harm. Medical and Physical Health Summary Additional Medical History not covered in history None reported Sexual History concerns None reported Physical exam in the last year? Yes Pain Screening Current pain? No Pain in the last few months? No Medications Is the patient compliant with medications? Yes Does the patient have Arora Guardian in place? No Does the patient use complimentary health approaches? No Trauma/Abuse History History of trauma? No Questionnaires PHQ-9 Over the last 2 weeks, how often have you been bothered by any of the following problems? 1. Little interest or pleasure in doing things: not at all 2. Feeling down, depressed, or hopeless: not at all 3. Trouble falling or staying asleep, or sleeping too much: not at all 4. Feeling tired or having little energy: not at all 5. Poor appetite or overeating: not at all 6. Feeling bad about yourself - or that you are a failure or have let yourself or your family down: not at all 7. Trouble concentrating on things, such as reading the newspaper or watching television: more than half the days 8. Moving or speaking so slowly that other people could have noticed. Or the opposite - being so fidgety or restless that you have been moving around a lot more than usual: not at all 9. Thoughts that you would be better off or of hurting yourself in some way: not at all Total score: 2 Depression Screening Interpretation: Negative Depression Screening Done: Yes 78112 - PHQ-9 Billing: Yes Source: Developed by Drs. Stra Padilla, Claudia Beard, Aubrey Lau and colleagues, with an educational shanell from [employer]. Binge Eating Scale Group 1 A. I don't feel self-conscious about my wt. or body size when I'm with others. B. I feel concerned about how I look to others, but it normally does not make me fell disappointed with myself C. I do get self-conscious about my appearance and wt. which makes me feel disappointed in myself. D. I feel very self-conscious about my wt. and frequently I feel intense shame and disgust for myself. I try to avoid social contacts because of my self-consciousness. Response Group 1: C Group 2 A. I don't have any difficulty eating slowly in the proper manner. B. Although I seem to gobble down foods, I don't end up feeling stuffed because of eating to much. C. At times, I tend to eat quickly and then, I feel uncomfortably full afterwards. D. I have the habit of bolting down my food, without really chewing it. When this happens I usually feel uncomfortably stuffed because I've eaten to much. Response Group 2: C Group 3 A. I feel capable to control my eating urges when I want to. B. I feel like I have failed to control my eating more than the average person. C. I feel utterly helpless when it comes to feeling in control of my eating urges. D. Because I feel so helpless about controlling my eating I have become very desperate about trying to get control. Response Group 3: B Group 4 A. I don't have the habit of eating when I'm bored. B. I sometimes eat when I'm bored, but often I'm able to get busy and get my mind off food. C. I have a regular habit of eating when I'm bored, but occasionally, I can use some other activity to get my mind off eating. D. I have a strong habit of eating when I'm bored. Nothing seems to help me breath the habit. Response Group 4: C Group 5 A. I'm usually physically hungry when I eat something. B. Occasionally, I eat something on impulse even though I really am not hungry. C. I have the regular habit of eating foods, that I might not really enjoy, to satisfy a hungry feeling even though physically, I don't need the food. D. Although I'm not physically hungry, I get a hungry feeling in my mouth that only seems to be satisfied when I eat a food, like sandwich, that fills my mouth. Sometimes, when I eat the food to satisfy my mouth hunger, I then spit the food out so I won't gain weight. Response Group 5: B Group 6 A. I don't feel any guilt or self-hate after I overeat. B. After I overeat, occasionally I feel guilt or self-hate. C. Almost all the time I experience strong guilt or self-hate after I overeat. Response Group 6: B Group 7 A. I don't lose total control of my eating when dieting even after periods when I overeat. B. Sometimes when I eat a forbidden food on a diet, I feel like I blew it and eat even more. C. Frequently, I have the habit of saying to myself, I've blown it now, why not go all the way, when I overeat on a diet. When that happens I eat more. D. I have a regular habit of starting a strict diets for myself but I break the diets by going on an eating binge. My life seems to be either a feast or famine. Response Group 7: B Group 8 A. I rarely eat so much food that I feel uncomfortably stuffed afterwards. B. Usually about once a month, I each such a quantity of food, I end up feeling very stuffed. C. I have regular periods during the month when I eat large amounts of food, either at mealtime or at snacks. D. I eat so much food that I regularly feel quite uncomfortable after eating and sometimes a bit nauseous. Response Group 8: B Group 9 A. My level of calorie intake does not go up very high or go down very low on a regular basis. B. Sometimes after I overeat, I will try to reduce my caloric intake to almost nothing to compensate for the excess calories I've eaten. C. I have a regular habit of overeating during the night. It seems that my routine is not to be hungry in the morning but overeat in the evening. D. In my adult years, I have had week-long periods where I practically starve myself. This follows periods when I overeat. It seems I live a life of either feast or famine. Response Group 9: B Group 10 A. I usually am able to stop eating when I want to. I know when enough is enough. B. Every so often, I experience a compulsion to eat which I can't seem to control. C. Frequently, I experience strong urges to eat which I seem unable to control, but at other times I can control my eating urges. D. I feel incapable of controlling urges to eat. I have a fear of not being able to stop eating voluntarily. Response Group 10: C Group 11 A. I don't have any problem stopping eating when I feel full. B. I usually can stop eating when I feel full but occasionally overeat leaving me feeling uncomfortably stuffed. C. I have a problem stopping eating once I start and usually I feel uncomfortably stuffed after I eat a meal. D. Because I have a problem not being able to stop eating when I want, I sometimes have to induce vomiting to relieve my stuffed feeling. Response Group 11: B Group 12 A. I seem to eat just as much when I'm with others, Family social gatherings as when I'm by myself. B. Sometimes, when I'm with other persons, I don't eat as much as I want to eat because I'm self-conscious about my eating. C. Frequently, I eat only a small amount of food when others are present, because I'm very embarrassed about my eating. D. I feel so ashamed about overeating that I pick times to overeat when I know no one will see me. I feel like a closet eater. Response Group 12: B Group 13 A. I eat three meals a day with only an occasional between meal snack. B. I eat 3 meals a day, but I also normally snack between meals. C. When I am snacking heavily, I get in the habit of skipping regular meals. D. There are regular periods when I seem to be continually eating, with no planned meals. Response Group 13: B Group 14 A. I don't think much about trying to control unwanted eating urges. B. At least some of the time, I feel my thoughts are pre-occupied with trying to control my eating urges. C. I feel that frequently I spend much time thinking about how much I ate or about trying not to eat anymore. D. It seems to me that most of my waking hours are pre-occupied by thoughts about eating or not eating. I feel like I'm constantly struggling not to eat. Response Group 14: B Group 15 A. I don't think about food a great deal. B. I have strong craving for food but they last only for brief periods of time. C. I have days when I can't seem to think about anything else but food. D. Most of my days seem to be pre-occupied with thoughts about food. I feel like I live to eat. Response Group 15: B Group 16 A. I usually know whether or not I'm physically hungry. I take the right portion of food to satisfy me. B. Occasionally, I feel uncertain about knowing whether or not I'm physically hungry. A these times it's hard to know how much food I should take to satisfy me. C. Even though I might know how many calories I should eat, I don't have any idea what is a normal amount of food for me. Response Group 16: B Binge Eating Score: 20 Score less than 17 Minimal Risk Score between 18-26 Moderate Risk Score between 27-46 High Risk Assessment & Plan Assessment & Plan (1) Anxiety: Code(s): F41.9 - Anxiety disorder, unspecified Plan PT is cleared from standpoint. Advised to f/up with me 2-4 weeks post-op. Telehealth Telehealth Location of provider rendering services: other Location of patient: other ([place]) Patient Identification confirmed using: Name, : Yes Telehealth method: voice only Patient verbally consented to treatment: Yes Patient verbally consented to billing insurance company: Yes Patient informed of any privacy concerns related to visit: No Minutes spent on Phone/Video with Pt.: 60 Coding Level of Care Code New Pt Tele Psy Diag Eval (75299) Patient Type New Diagnoses Anxiety F41.9 Time Spent (min) 60
== END 2023-09-04 11:53 | disposition home or self-care (01) ==
LOC: HO.HBST 11:18
PROVIDERS: Visit Provider Counselor Mental Health
DX: F41.9 Anxiety disorder, unspecified (principal)
CPT/HCPCS: 90791

== ENCOUNTER 2023-09-12 08:13 | Outpatient (AMB) | payer OTHER, SELFPAY ==
--- NOTE | 2023-09-12 11:36 | A.OFFVIS_ITS ---
Intake VS Expanded 09/12/23 11:47 Height 5 ft 4 in Weight 226 lb 4 oz BMI 38.8 Body Fat % 49.3 Body Fat Mass 111.6 Fat Free Mass 114.8 Visceral Fat Rating 20 Body Water % 34.8 Body Water Mass 78.7 Basal Metabolic Rate/Score 1,478 Intake Visit Reasons: TV Follow Up SWL Allergies No Known Allergies Allergy (Verified 08/04/23 10:19) HPI TV Follow Up SWL HPI Details Start time: 11.33am End time: 11.53am ?I spent 15 minutes speaking with the patient on the phone plus an additional 5 minutes reviewing and updating records for a total of 20 minutes HPI Comments History of Present Illness Details Overall weight loss: 7lbs, or 3% TBWL Is doing 2 Celebrate Rebuild protein shakes (1 scoop each in almond milk), 2 Celebrate protein bars and one meal (8 forkfuls of protein and 8 forkfuls of salad or vegetables) Exercise: doing Peloton for 315 calories and kickboxing for 100 calories PFSH Medical History Anxiety Asthma Morbid obesity Surgical History Hx of wisdom tooth extraction Social History Patient Tobacco Use Status: Never used Tobacco Assessment & Plan Assessment & Plan (1) Obesity: Code(s): E66.9 - Obesity, unspecified Qualifiers: Obesity type: due to excess calories Obesity classification: adult class 2 (BMI 35 - 39.9) Serious obesity comorbidity presence: with serious comorbidity Body mass index: BMI 38.0-38.9 Qualified Code(s): E66.01 - Morbid (severe) obesity due to excess calories; Z68.38 - Body mass index [BMI] 38.0- 38.9, adult Plan: 1. Continue same nutritional plan of 2 Celebrate Rebuild protein shakes (1 scoop each in almond milk), 2 Celebrate protein bars and one meal (8 forkfuls of protein and 8 forkfuls of salad or vegetables) 2. Exercise: continue with Peloton for 300 calories at least per day, daily. Continue with kickboxing for 100 calories 3. Continue to send me weight measurements weekly on Tuesdays Telehealth Telehealth Location of provider rendering services: practice address Location of patient: address on file Patient Identification confirmed using: Name, : Yes Telehealth method: voice only Patient verbally consented to treatment: Yes Patient verbally consented to billing insurance company: Yes Patient informed of any privacy concerns related to visit: Yes Minutes spent on Phone/Video with Pt.: 20 Coding Level of Care Code Tele Est Pt Level 3 (74854) Diagnoses Class 2 severe obesity due to excess calories with serious comorbidity and body mass index (BMI) of 38.0 to 38.9 in adult E66.01; Z68.38 Obesity type: due to excess calories Obesity classification: adult class 2 (BMI 35 - 39.9) Serious obesity comorbidity presence: with serious comorbidity Body mass index: BMI 38.0-38.9 Time Spent (min) 20
[2023-09-12 11:47] VITALS: BMI 38.8
== END 2023-09-12 11:54 | disposition home or self-care (01) ==
LOC: HO.HBS 08:13
PROVIDERS: Visit Provider Surgery
DX: E66.01 Morbid (severe) obesity due to excess calories (principal); Z68.38 Body mass index [BMI] 38.0-38.9, adult
CPT/HCPCS: 99213

== ENCOUNTER → 2023-09-12 08:13 | Outpatient (BNVA) | payer OTHER, SELFPAY | PROVIDERS: Visit Provider Surgery ==

== ENCOUNTER 2023-09-22 10:38 | Outpatient (REF) | payer OTHER, SELFPAY ==
--- NOTE | ~2023-09-22 | FL_ITS ---
EXAMINATION: XR FLUOROSCOPY UPPER GI WITH AIR CLINICAL INFORMATION: Preop evaluation prior to bariatric surgery COMPARISON: None TECHNIQUE: Fluoroscopic air contrast upper GI examination was performed utilizing standard techniques with thin and thick barium and effervescent granules. Numerous spot images were obtained. FINDINGS: Lateral cine images of the oropharynx and hypopharynx demonstrate normal swallow mechanism with normal epiglottic inversion and soft palate elevation. No tracheal penetration, glottic or subglottic aspiration identified. No nasopharyngeal reflux present. Hypopharyngeal structures appear normal without evidence of mass or diverticulum. There was no significant cricopharyngeal achalasia. Dual and single contrast images of the esophagus demonstrate normal caliber, contour, and mucosal pattern. No evidence of stricture, mass, or ulcerations identified. Esophageal peristalsis was normal. Small type I hiatal hernia is present. No significant gastroesophageal reflux was seen during the course of the examination and on reflux views. Dual contrast and single contrast images of the stomach demonstrated normal contour. There are a few small filling defects in the body and antrum, most likely representing small polyps. Mucosal pattern is otherwise normal. No mass or large ulceration. Contrast freely passed into the gastric antrum and duodenal bulb without delay. Single and air-contrast images of the duodenal bulb demonstrate no abnormality. The duodenal sweep has a normal course with mildly thickened appearing folds. The imaged proximal jejunum also demonstrates mild fold thickening although this is felt most likely to represent artifact from inadequate contrast distention. FLUOROSCOPY TIME: 3 minutes 2 seconds Number of Spot Images: 7 Number of Cine: 7 DOSE AREA PRODUCT: 2194 uGy-m2 (microgray-meter squared) FL/FL upper GI w air IMPRESSION: 1. Small type I hiatal hernia. 2. A few suspected small polyps within the gastric body and antrum. 3. Mildly thickened folds within the duodenum and proximal jejunum, possibly artifactual from underdistention, versus a mild proximal enteritis or malabsorption state. This procedure was performed by Darrick Ortiz PA-C, and supervised by Dr. Banerjee
== END 2023-09-22 10:39 | disposition home or self-care (01) ==
LOC: HO.XRAY 10:38
PROVIDERS: Visit Provider Surgery
DX: E66.01 Morbid (severe) obesity due to excess calories (principal)
CPT/HCPCS: 74246

== ENCOUNTER → 2023-09-22 10:39 | Outpatient (BNV) | payer OTHER, SELFPAY | PROVIDERS: Visit Provider Radiology Diagnostic Radiology | DX: Z01.818 Encounter for other preprocedural examination (principal) | CPT/HCPCS: 74246 ==

== ENCOUNTER 2023-10-03 07:53 | Outpatient (AMB) | payer OTHER, SELFPAY ==
--- NOTE | 2023-10-03 11:19 | A.OFFVIS_ITS ---
Intake VS Expanded 10/03/23 11:24 Height 5 ft 4 in Weight 215 lb 8 oz BMI 37.0 Body Fat % 46.5 Body Fat Mass 100.3 Fat Free Mass 115.4 Visceral Fat Rating 19 Body Water % 36.7 Body Water Mass 79.1 Basal Metabolic Rate/Score 1,500 Intake Visit Reasons: TV Follow Up SWL Allergies No Known Allergies Allergy (Verified 08/04/23 10:19) HPI TV Follow Up SWL HPI Details Start time: 11.17am, End time: 11.31am ?I spent 9 minutes speaking with the patient on the phone plus an additional 5 minutes reviewing and updating records for a total of 14 minutes HPI Comments History of Present Illness Details Overall weight loss: 17.6lbs, or 7.54% TBWL Is doing 2 Celebrate Rebuild protein shakes (1 scoop in 8oz almond milk), 2 Celebrate protein bars and one meal (8 forks of protein and 8 forks of salad or vegetables) Exercise: doing Peloton for 300 calories PFSH Medical History Anxiety Asthma Morbid obesity Surgical History Hx of wisdom tooth extraction Social History Patient Tobacco Use Status: Never used Tobacco Assessment & Plan Assessment & Plan (1) Obesity: Code(s): E66.9 - Obesity, unspecified Qualifiers: Obesity type: due to excess calories Obesity classification: adult class 2 (BMI 35 - 39.9) Serious obesity comorbidity presence: with serious comorbidity Body mass index: BMI 38.0-38.9 Qualified Code(s): E66.01 - Morbid (severe) obesity due to excess calories; Z68.38 - Body mass index [BMI] 38.0- 38.9, adult Plan: 1. Plan for lap sleeve gastrectomy including upper GI endoscopy. All tests has been completed and reviewed and the patient is cleared for the surgery. ?If diaphragmatic or ventral hernias are present at time of surgery, these will be repaired laparoscopically as well. Risks and complications were discussed in detail including possible conversion to an open procedure, anastomotic leak, bleeding requiring transfusion, small bowel obstruction, , DVT and pulmonary embolism, cardiac, or pulmonary complications, as fdc complications such as anastomotic ulcer, insufficient weight loss and vitamin deficiencies. I emphasized the importance of close follow-up, adherence to instructions and good communication. So far she has proven to be an excellent communicator and very compliant with all our directions accomplishing a great weight loss. I believe that she is an excellent candidate and she is ready. 2. Continue same nutritional plan of 2 Celebrate Rebuild protein shakes (1 scoop in 8oz almond milk), 2 Celebrate protein bars and one meal (8 forks of protein and 8 forks of salad or vegetables) 3. Exercise: continue Peloton for 300 calories, daily 4. Continue to send me weight measurements weekly on Wednesdays Telehealth Telehealth Location of provider rendering services: practice address Location of patient: address on file Patient Identification confirmed using: Name, : Yes Telehealth method: voice only Patient verbally consented to treatment: Yes Patient verbally consented to billing insurance company: Yes Patient informed of any privacy concerns related to visit: Yes Minutes spent on Phone/Video with Pt.: 14 Coding Level of Care Code Tele Est Pt Level 2 (35717) Diagnoses Class 2 severe obesity due to excess calories with serious comorbidity and body mass index (BMI) of 38.0 to 38.9 in adult E66.01; Z68.38 Obesity type: due to excess calories Obesity classification: adult class 2 (BMI 35 - 39.9) Serious obesity comorbidity presence: with serious comorbidity Body mass index: BMI 38.0-38.9 Time Spent (min) 14
[2023-10-03 11:24] VITALS: BMI 37.0
== END 2023-10-03 11:32 | disposition home or self-care (01) ==
LOC: HO.HBS 07:54
PROVIDERS: Visit Provider Surgery
DX: E66.01 Morbid (severe) obesity due to excess calories (principal); Z68.38 Body mass index [BMI] 38.0-38.9, adult
CPT/HCPCS: 99212

== ENCOUNTER → 2023-10-03 07:53 | Outpatient (BNVA) | payer OTHER, SELFPAY | PROVIDERS: Visit Provider Surgery ==

== ENCOUNTER 2023-10-11 08:39 | Outpatient (REF) | payer OTHER, SELFPAY ==
[2023-10-11 09:05] LABS: Basophils Percent Auto 0.4 % (0-2); Eosinophils Percent Auto 0.3 % (0-4); Hematocrit 40.4 % (37.0-47.0); Hemoglobin 13.2 g/dl (12.0-16.0); Imm Gran Abs Auto 0.01 X10*3/uL (0.00-0.03); Imm Gran Pct Auto 0.1 % (0.0-0.4); Lymphocytes Absolute Auto 1.7 X10*3/uL (1.2-4.9); Lymphocytes Percent Auto 23.9 % (20-40); MANUAL DIFF FLAG NO; Mean Corpuscular HGB Conc 32.7 g/dl (31.0-35.0); Mean Corpuscular Hemoglobin 28.1 pg (27.0-33.0); Mean Corpuscular Volume 86.1 fL (80.0-98.0); Mean Platelet Volume 10.3 fL (9.4-12.3); Monocytes Absolute Auto 0.5 X10*3/uL (0.1-1.2); Monocytes Percent Auto 6.5 % (2-11); Neutrophils Absolute Auto 4.8 x10*3/uL (2.0-8.3); Neutrophils Percent Auto 68.8 % (45-73); Platelet Count 243 X10*3/uL (160-400); Red Blood Count 4.69 X10*6/uL (4.20-5.50); Red Cell Distribution Width 13.2 % (11.0-16.0)
[2023-10-11 09:17] LABS: Prothrombin Time 12.4 SEC (11.1-13.3)
[2023-10-11 09:20] LABS: Partial Thromboplastin Time 31.1 SEC (26.0-36.8)
[2023-10-11 09:38] LABS: Alanine Aminotransferase 19 U/L (0-31); Albumin Level 4.3 g/dL (3.5-5.0); Alkaline Phosphatase 90 U/L (39-117); Anion Gap 11 (12-20); Aspartate Amino Transferase 14 U/L (5-31); Bilirubin Total 0.7 mg/dL (0.0-1.0); Blood Urea Nitrogen 13 mg/dL (9-16); C Reactive Protein 0.21 mg/dL (< or = 0.50); Calcium 9.1 mg/dL (8.4-10.2); Carbon Dioxide 25 mmol/L (22-29); Chloride 108 mmol/L (96-108); Cholesterol 126 mg/dL (<200); Estimated Glomerular Filt Rate > 60; Glucose Random 86 mg/dL (60-115); HDL Cholesterol 37 mg/dL (>40); LDL Cholesterol Calculated 79 mg/dL (<100); Potassium 4.2 mmol/L (3.3-5.1); Sodium 140 mmol/L (135-145); Triglycerides 50 mg/dL (<150)
[2023-10-11 09:57] LABS: Insulin 9 uU/mL (2-29); TSH reflex Free T4 0.86 uIU/mL (0.32-4.0)
[2023-10-11 14:11] LABS: Estimated Average Glucose 82 mg/dL; Hemoglobin A1c % 4.5 % (<6.0)
== END 2023-10-11 08:40 | disposition home or self-care (01) ==
LOC: HO.LAB 08:39
PROVIDERS: Visit Provider Surgery
DX: E66.01 Morbid (severe) obesity due to excess calories (principal); Z68.38 Body mass index [BMI] 38.0-38.9, adult; J45.909 Unspecified asthma, uncomplicated
CPT/HCPCS: 36415; 80053; 80061; 83036; 83525; 84443; 85025; 85610; 85730; 86140; 86850; 86900; 86901

== ENCOUNTER 2023-10-14 15:07 | Outpatient (AMB) | payer OTHER, SELFPAY ==
[2023-10-14 19:46] VITALS: BMI 35.6
--- NOTE | 2023-10-14 19:46 | A.OFFVIS_ITS ---
Intake VS Expanded 10/14/23 19:46 Height 5 ft 4 in Weight 207 lb 8 oz BMI 35.6 Body Fat % 44.4 Body Fat Mass 92.2 Fat Free Mass 115.6 Visceral Fat Rating 17 Body Water % 38.1 Body Water Mass 79.1 Basal Metabolic Rate/Score 1,489 Intake Visit Reasons: TV Pre Op LSG 10/22/23 Allergies No Known Allergies Allergy (Verified 10/14/23 19:50) Medication List - Last Reconciled 10/14/23 by Fuastino Gomez MD albuterol sulfate 90 mcg/actuation 1 - 2 puffs inhalation Q4-6H PRN cetirizine (Wal-Zyr (cetirizine)) 10 mg PO DAILY PRN cholecalciferol (vitamin D3) 125 mcg PO DAILY citalopram 40 mg PO DAILY ondansetron HCl 4 mg PO Q12H pantoprazole 40 mg PO DAILY polyethylene glycol 3350 17 grams PO DAILY sucralfate 10 mL PO BID thiamine HCl (vitamin B1) 100 mg PO DAILY HPI TV Pre Op LSG 10/22/23 HPI Details Start time: 3.30pm, End time: 4pm ?I spent 25 minutes speaking with the patient on the phone plus an additional 5 minutes reviewing and updating records for a total of 30 minutes HPI Comments History of Present Illness Details Overall weight loss: 25.6 or 10.97% TBWL Is doing 2 Celebrate Rebuild shakes (1 scoop each in 8oz almond milk), 2 Celebrate bars and one meal (8 forks each) PFSH Medical History Anxiety Asthma Morbid obesity Surgical History Hx of wisdom tooth extraction Social History Patient Tobacco Use Status: Never used Tobacco Assessment & Plan Assessment & Plan (1) Obesity: Code(s): E66.9 - Obesity, unspecified Qualifiers: Obesity type: due to excess calories Obesity classification: adult class 2 (BMI 35 - 39.9) Serious obesity comorbidity presence: with serious co morbidity Body mass index: BMI 38.0-38.9 Qualified Code(s): E66.01 - Morbid (severe) obesity due to excess calories; Z68.38 - Body mass index [BMI] 38.0- 38.9, adult Plan: 1. Plan for lap sleeve gastrectomy including upper GI endoscopy. All tests has been completed and reviewed and the patient is cleared for the surgery. If diaphragmatic or ventral hernias are present at time of surgery, these will be repaired laparoscopically as well. Risks and complications were discussed in detail including possible conversion to an open procedure, anastomotic leak, bleeding requiring transfusion, small bowel obstruction, , DVT and pulmonary embolism, cardiac, or pulmonary complications, as emt intermediate complications such as anastomotic ulcer, insufficient weight loss and vitamin deficiencies. I emphasized the importance of close follow-up, adherence to instructions and good communication. So far she has proven to be an excellent communicator and very compliant with all our directions accomplishing a great weight loss. I believe that she is an excellent candidate and she is ready. 2. Preop prescriptions were provided and explained the purpose of each one. Need to be purchased preop. Start Pantoprazole now as you get it from the pharmacy, 1 pill per day. Sucralfate and Zofran are for after surgery as needed. 3. Bowel prep: please do 7 packets of Miralax mixing each one with a an 8oz glass of water, crystal light, gatorade zero, or propel on 10/20/23 and the same amount on 10/21/23. The Miralax you begin with one packet at a time in 8oz water or crystal light, gatorade zero, or propel as early in the day as you can and you do them back to back until you finish them. Continue the protein shakes during the bowel prep. 4. Needs to purchase 1oz medicine cups . 5. Needs to purchase Children's liquid Tylenol for postop pain control. 6. Avoid aspirin, motrin, Advil, Aleve, Ibuprofen, Naproxyn. Tylenol is OK. 7. She needs to purchase the Celebrate 4:1 protein shakes from the [facility]. 8. Will do basic preop blood work-up any day between Friday10/14/23 and Friday10/18/23 fasting for 12 hours and is scheduled to see the Anesthesiologist prior to the day of surgery. 9. Importance of adherence to postop folllow-up and recommendations was underscored and she understands that. 10. Stop food and bars as of Friday10/12/23 and continue with 3 Celebrate REBUILD protein shakes (ONE scoop EACH in 8oz almond milk) at 7am-9am, 10am-12pm and 1pm-3pm, and TWO more Celebrate REBUILD protein shakes with TWO scoops in 8oz of almond milk at 4pm-6pm and 7pm-9pm. 11. No soups, broths or V8 12. The patient's medical history has been reviewed and they are considered low risk for post op DVT and therefore DVT prophylaxis is not considered necessary. Travel after surgery was reviewed. The patient has not disclosed any travel plans during the first 30 days after surgery and they have been advised that within the first 30 days after surgery any bus, plane, train or car travel over 2 hours in duration is contraindicated due to the possibility of developing blood clots from immobility. Any travel, needs to include periods of ambulation of 10 minutes in duration every 2 hours. Patient was instructed to discuss any plans for travel during this period with their bariatric surgeon. 13. Please take at the day of surgery the following medications: NONE 14. Stop any control pills and don't use them for one month after surgery 15. Absolutely no smoking or vaping, or marijuana until the surgery and for at least the first 4 weeks. Only nicotine patches are allowed. 16. Send me weight measurements on Friday10/14/23 and then on Friday10/22/23 the day of surgery before you go to the hospital. 17. Avoid any steroids by mouth for any reason. Let me know if someone prescribes them to you 18. These instructions supersede anything else you read in the handbook, anything you watched in videos or classes or you were told by any other provider. If there is any conflict, you follow the above instructions and nothing else. Medications: Discontinued polyethylene glycol 3350 (Miralax) Mix each packet with 8oz of water, Crystal light, or Gatorade zero, or Propel and do 7 packets on 10/20/23 and another 7 packets on 10/21/23 Discontinued Reason: Ancillary Entered New Order 17 grams PO DAILY 14 ea 0RF Z01.818 - Encounter for other preprocedural examination Telehealth Telehealth Location of provider rendering services: practice address Location of patient: address on file Patient Identification confirmed using: Name, : Yes Telehealth method: voice only Patient verbally consented to treatment: Yes Patient verbally consented to billing insurance company: Yes Patient informed of any privacy concerns related to visit: Yes Minutes spent on Phone/Video with Pt.: 30 Coding Level of Care Code Tele Est Pt Level 4 (45795) Diagnoses Class 2 severe obesity due to excess calories with serious comorbidity and body mass index (BMI) of 38.0 to 38.9 in adult E66.01; Z68.38 Obesity type: due to excess calories Obesity classification: adult class 2 (BMI 35 - 39.9) Serious obesity comorbidity presence: with serious comorbidity Body mass index: BMI 38.0-38.9 Time Spent (min) 30
== END 2023-10-14 19:54 | disposition home or self-care (01) ==
LOC: HO.HBS 15:07
PROVIDERS: Visit Provider Surgery
DX: E66.01 Morbid (severe) obesity due to excess calories (principal); Z68.38 Body mass index [BMI] 38.0-38.9, adult
CPT/HCPCS: 99024

== ENCOUNTER → 2023-10-14 15:07 | Outpatient (BNVA) | payer OTHER, SELFPAY | PROVIDERS: Visit Provider Surgery ==

== ENCOUNTER → 2023-10-17 08:20 | Outpatient (BNVA) | payer OTHER, SELFPAY | PROVIDERS: Visit Provider Surgery ==

== ENCOUNTER → 2023-10-22 08:54 | Outpatient (BNVA) | payer OTHER, SELFPAY | PROVIDERS: Visit Provider Physician Assistant Surgical ==

== ENCOUNTER 2023-10-23 08:07 | Inpatient (IN) | payer OTHER, SELFPAY ==
[2023-10-17 11:26] VITALS: BMI 35.7
--- NOTE | 2023-10-22 09:18 | HO.ANESPROP2 ---
Documented by User: Trudy Wilks NP 10/22/23 09:19 HPI - Anesthesia Eval Consult details Narrative: 28yo F for Gastrectomy Sleeve-EGD, possible diaphragmatic hernia, possible ventral hernia, possible open PMFSH Active Problems Active Problems: All Active Problems (Updated 09/12/23 @ 11:52 by Faustino Gomez MD) Obesity (Acute) Vitamin B1 deficiency (Acute) Vitamin D deficiency (Acute) Anxiety (Acute) Asthma (Acute) Morbid obesity (Acute) Past Medical History Medical History Anxiety Asthma Morbid obesity Family History Family history of problems with anesthesia: No Surgical History Surgical History History of esophagogastroduodenoscopy (EGD) (09/03/23) Hx of foot surgery Hx of wisdom tooth extraction History of Problems with Anesthesia: No Social History Social History Household Members: Family Housing: House Are you 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 If so, by whom?: No Are you DNR?: No Advance Directives: No Advance Directives Information Provided: Yes Advance Directives on File: No Recently lost weight without trying: No Nutrition Risks: No Nutritional Risk Patient : No FDLMP: 09/25/2023 : No Poor oral hygiene: No Meds Allergies Allergy/AdvReac Type Severity Reaction Status Date / Time No Known Allergies Allergy Verified 10/23/23 08:37 Home Medications Medication Instructions Recorded Confirmed Last Taken Type albuterol sulfate 90 mcg/actuation 1 - 2 puff inhalation Q4-6H PRN 08/04/23 10/17/23 Unknown History aerosol inhaler Shortness Of Breath Or Wheezing citalopram 40 mg tablet 40 mg PO DAILY 08/04/23 10/17/23 09/02/23 History Flovent HFA PRN Shortness Of Breath Or Wheezing 10/17/23 10/17/23 Unknown History Exam Height,Weight and Vital Signs: Height 5 ft 4 in Weight 94.347 kg Pertinent Lab Results Pertinent Lab Results: Laboratory Tests 10/11/23 08:50 Blood Type A Positive Antibody Screen NEGATIVE Laboratory Tests 10/11/23 Unknown WBC 7.0 Hgb 13.2 Hct 40.4 Plt Count 243 Sodium 140 Potassium 4.2 Chloride 108 Carbon Dioxide 25 BUN 13 Creatinine 0.78 Narrative Narrative: EKG 07/2023 Vent. Rate : 073 BPM Atrial Rate : 073 BPM P-R Int : 140 ms QRS Dur : 100 ms QT Int : 382 ms P-R-T Axes : -03 027 016 degrees QTc Int : 420 ms Normal sinus rhythm Low voltage QRS Borderline ECG No previous ECGs available Assessment and Plan Assessment Anesthesia Assessment: Chart Reviewed Final Anesthetic Review Family History of Problems with Anesthesia: No History of Problems with Anesthesia: No Documented by User: Evelia Agarwal MD 10/23/23 13:01 [facility] Active Problems Active Problems: All Active Problems (Updated 10/23/23 @ 11:52 by Evelia Agarwal MD) Obesity (Acute) Vitamin B1 deficiency (Acute) Vitamin D deficiency (Acute) Anxiety (Acute) Asthma (Acute) Morbid obesity (Acute) BMI 36.4 Past Medical History Medical History Anxiety Asthma Morbid obesity Family History Family history of problems with anesthesia: No Surgical History Surgical History History of esophagogastroduodenoscopy (EGD) (09/03/23) Hx of foot surgery Hx of wisdom tooth extraction History of Problems with Anesthesia: No Social History Social History Household Members: Family Housing: House Are you 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 If so, by whom?: No Are you DNR?: No Advance Directives: No Advance Directives Information Provided: Yes Advance Directives on File: No Recently lost weight without trying: No Nutrition Risks: No Nutritional Risk Patient : No FDLMP: 09/25/2023 : No Poor oral hygiene: No Meds Allergies Allergy/AdvReac Type Severity Reaction Status Date / Time No Known Allergies Allergy Verified 10/23/23 08:37 Home Medications Medication Instructions Recorded Confirmed Last Taken Type albuterol sulfate 90 mcg/actuation 1 - 2 puff inhalation Q4-6H PRN 08/04/23 10/17/23 Unknown History aerosol inhaler Shortness Of Breath Or Wheezing citalopram 40 mg tablet 40 mg PO DAILY 08/04/23 10/17/23 09/02/23 History Flovent HFA PRN Shortness Of Breath Or Wheezing 10/17/23 10/17/23 Unknown History Exam Height,Weight and Vital Signs: Height 5 ft 4 in Weight 94.347 kg Vital Signs Temp Pulse Resp BP Pulse Ox O2 Del Method 98.2 F 74 18 135/67 98 Room Air 10/23/23 08:33 10/23/23 08:33 10/23/23 08:33 10/23/23 08:33 10/23/23 08:33 10/23/23 08:33 Pertinent Lab Results Pertinent Lab Results: Laboratory Tests 10/11/23 08:50 Blood Type A Positive Antibody Screen NEGATIVE Laboratory Tests 10/11/23 Unknown WBC 7.0 Hgb 13.2 Hct 40.4 Plt Count 243 Sodium 140 Potassium 4.2 Chloride 108 Carbon Dioxide 25 BUN 13 Creatinine 0.78 Laboratory Results - last 24 hr 10/23/23 08:07 Urine Test NEGATIVE Airway Mallampati Class: II TM Dist: >3cm Neck ROM: Full Loose/Missing/Broken Teeth: No Heart: RRR Lungs: CTAB Assessment and Plan Assessment Anesthesia Assessment: Anesthesia Plan Discussed and Chart Reviewed Final Anesthetic Review Family History of Problems with Anesthesia: No History of Problems with Anesthesia: No NPO: Yes ASA Class: III Final Preanesthetic Review: No Changes in Pt Med Stat, Meds/Allgs Chart Reviewed, Consent Obtained/Reviewed and Anes Risks/Benef Reviewed Patient Risk: Intermediate Procedure Risk: Intermediate Assessment/Block/Sedation in SS: Assess/Block/Sedation-SS Anesthetic Plan Anesthetic Plan: GA Disposition: Standard PACU and Inp. Admit - [facility]
[2023-10-23] VITALS (18 sets, daily range): BP systolic 102–135; BP diastolic 56–76; PULSE 63–77; RESP 14–18; TEMP 36.2–36.8; O2SAT 97–100; BMI 36.4; BMI 40.9
[2023-10-23 08:23] LABS: UPreg QC Valid YES; Urine Pregnancy NEGATIVE (NEGATIVE)
[2023-10-23] MEDS: Lactated Ringers 1,000 ML 100 ML IVCONT ×2 (08:23→15:58)
[2023-10-23] MEDS: Lactated Ringers 1,000 ML 999 ML IV (08:24)
[2023-10-23] MEDS: Aprepitant 32 MG/4.4 ML VIAL IVPUSH (08:46)
--- NOTE | 2023-10-23 10:12 | MHC.SHP ---
Pre-Procedural Eval Section A - 24 Hr Update-Section A only Date of Service: 10/23/23 The patient is an INPATIENT: Yes The patient has been examined within 24 hours of the surgical procedure. The History & Physical has been completed within 30 days and I have reviewed it.: Yes Section B - Complete if H&P > 30 days Chief Complaint: Obesity Relevant Family History (Specify if Yes): No Relevant Social History: None Present Medications: None Medical History: No relevant PMH History of Previous Operations: No relevant previous surgery Allergies: Allergies Allergy/AdvReac Type Severity Reaction Status Date / Time No Known Allergies Allergy Verified 10/23/23 08:37 Review of Systems Sugical H&P ROS: Negative: Constitution, Cardiovascular, Respiratory, Neurological, Psychiatric, Hem-Onc, Allergic/Immunologic, Gastrointestinal, Genitourinary, Musculoskeletal, Integumentary, Endocrine and Eyes/Ears/Nose/Throat Exam Surgical H&P Exam: Normal: HEENT, Normal: Heart, Normal: Lungs, Normal: Extremities, Normal: Abdomen, Normal: Skin and Normal: Neurological Plan Diagnosis/Plan: Unchanged I have reviewed the history and physical and performed a pertinent physical examination on my patient. No changes have occurred unless specified. Time Spent With Patient Time: Total time managing care of this patient today ____ minutes.
--- NOTE | 2023-10-23 10:16 | P.BOP_ITS ---
Brief Operative Note Date of Service: 10/23/23 Pre-op diagnosis: Severe obesity with comorbidities (see below) Post-op diagnosis: same Procedure: INITIAL PATIENT BMI ON PRESENTATION AT OUR OFFICE: 40.1 kg/m2 LAST BMI BEFORE SURGERY: 35.9 kg/m2 COMORBIDITIES: asthma, anxiety, liver steatosis, liver fibrosis ?The patient presented to the Weight Management Program with significant obesity that was negatively impacting the patient's comorbidities as listed above.? The program is a phased program with a special focus on preoperative medical weight management to promote substantial weight loss and prepare the patients for the second phase of the program: bariatric surgery. The patient participated in an intensive weekly lifestyle ?intervention and exercise program during which the patient ?has lost between the initial office visit and the last preoperative visit 18 lbs, or 7.8% of initial actual body weight. It was deemed appropriate for the patient to now have bariatric surgery. In light of the current Covid-19 pandemic and the well documented strong association of obesity and increased risk of worse outcomes if infected with Covid-19 (REFERENCES: https://pubmed.ncbi.nlm.nih.gov/07536808/ ,? ht tps://pubmed.ncbi.nlm.nih.gov/09520733/ ), any delay in undergoing bariatric surgery may lead to the patient's worsening health condition and increased?risk of more severe Covid-19 disease if infected. In addition a recent?study from [facility] published in [employer] on 08/20/2021 ([email or web address]) found that, among patients with obesity, substantial weight loss achieved with surgery was associated with improved outcomes of COVID-19 infection. The findings suggest that obesity can be a modifiable risk factor for the severity of COVID-19 infection. In addition, the patient met the BMI-criteria for bariatric surgery based on the BMI on initial presentation. The patient should not be penalized for achieving such weight loss because ?it is not sustainable long-term without surgical intervention and it was achieved in preparation for bariatric surgery ?under my direction and based on my published research ([email or web address] and? https://www.soard.org/article/[email or web address](00)14350-X/pdf ) ?that a 10% preoperative weight loss improves long-term weight loss after surgery and reduces perioperative complications.? Insurance carriers such as [facility] have endorsed my recommendations ?and have included in their policies criteria to include a 10% preoperative weight loss requirement. PROCEDURE: Esophago-gastroscopy laparoscopic lysis of adhesions, laparoscopic sleeve gastrectomy and laparoscopic gastropexy INDICATIONS: This is a 28 year-old female who was electively scheduled for laparoscopic, possibly open sleeve gastrectomy. The risks and complications of the procedure were discussed with the patient in advance, particularly the possibility of ; pulmonary embolism; staple line leak; bleeding; GERD; cardiac, pulmonary, or renal complications; as well as long-term problems such as insufficient weight loss, vitamin deficiency, strictures, or ulcers. The patient understood all the risks, and was in agreement to proceed with surgery. DESCRIPTION OF PROCEDURE: After informed consent was obtained from the patient, the patient was given preoperative antibiotics, and was transferred to the operating room. After successful induction of general anesthesia, pneumatic compression devices were placed on both lower extremities. An upper endoscopy was performed next. The oropharynx and esophagus appeared to be within normal limits. There was no diaphragmatic hernia present. The stomach was entered. Then after all fluid and air were suctioned and the stomach was fully decompressed, the scope was withdrawn and secured in the mid esophagus. The patient was then prepped and draped in the usual sterile manner, and abdomi nal access was established at the right upper quadrant with the Nicole technique. A 12 mm blunt port was inserted, and the abdomen was insufflated with CO2 to a pressure of 15 mmHg. Under direct visualization, additional ports were placed, specifically two 5 mm Versi-step ports to the left upper quadrant, and a 5 mm Versi-Step port to the right upper quadrant. 1% lidocaine plain was used to infiltrate all port sites as well as all fascia defects. Following that, the patient was placed in a steep reverse Trendelenburg position. An additional 5 mm port was placed to the right flank for the Mediflex retractor that was used to retract the left lobe of the liver. The gastro-esophageal fat pad was opened with the ultrasonic device (Thnachoerbemarlee, Olympus) and the anterior esophagus and hiatus were exposed. The angle of His was opened with the ultrasonic device the fundus of the stomach from any diaphragmatic and splenic attachments. I then opened the gastrocolic ligament between the transverse colon and the greater curvature of the stomach with the ultrasonic device to enter the lesser sac and facilitate the ligation of the short gastric vessels. I started at a mid-point along the greater curvature and using the Thunderbeat, all short gastric vessels were divided all the way to the angle of His until the left dustin was completely dissected at its entirety. I then divided the gastro-colic ligament distally to a distance of about 3-4 cm proximal to the pylorus. There were extensive congenital adhesions between the pancreas and posterior gastric wall. Those were lysed completely with the ultrasonic device. Adhesiolysis took approximately 45 min to complete.? The stomach was then divided transversely with two Endo YAJAIRA-45 purple and three YAJAIRA-60 articulating purple loads using the [employer] stapler and loads. Every effort was made that the gastric sleeve had a tubular shape and an even caliber throughout. Once the sleeve resection was completed, the staple line of the gastric sleeve was reinforced with Hemoclips. The resected stomach was retrieved without difficulty from the Nicole port. A gastropexy was then performed in order to prevent postoperative GERD and partial gastric volvulus. Several interrupted 2.0 Surgidac sutures were placed between the sleeve's staple line and the previously divided greater omentum and gastro-colic ligament using the Endo-Stitch device. ?An upper endoscopy was performed. There was no narrowing at the GE junction. The scope was easily advanced all the way to the pylorus which was clearly visualized. There was no narrowing anywhere and the sleeve's caliber was even throughout. The sleeve's staple line was inspected and there was no evidence of ischemia, bleeding or dehiscence. At that point the gastroscope was withdrawn from the patient?s mouth while we were decompressing the bowel and the stomach from any remaining air. I looked into the lesser sac to see how the sleeve was situating and it was situating well. There was no bleeding from the staple line, spleen, or short gastric vessels. The Mediflex retractor was removed, and the undersurface of the liver was inspected and there was no bleeding. The patient was placed in supine position. I closed the fascial defect of the 12 mm port site with a figure of eight #1 Polysorb suture. Then 30cc Ropivacaine plain with 10 mg of Dexamethasone were used to infiltrate the fascial closure as well as all skin incisions. At this point, the abdomen was deflated, all ports were removed under direct vision, and no bleeding was noted from any of the port sites. The skin incisions were irrigated with saline and were closed with 4-0 absorbable monofilament sutures. Steri-Strips and OpSites were used to cover all incisions. The patient was extubated and was transferred in stable condition to the recovery room for further care. I was present and performed all segura parts of the procedure. Mr Lopez was the certified surgical first assistant. There were no residents to assist with this case. Jac Gomez MD, PhD, FACS Surgeon: Faustino Gomez MD Anesthesia: GETA, local and other (TAP block) Was an Senior Clinical Study Manager used for this Procedure?: No Senior Clinical Study Manager: Clyde Lopez Estimated blood loss (mL): 10 IV fluids (mL): 2,000 Urine output (mL): 0 (No Chandler to record output) Pathology: other (Stomach) Condition: stable Disposition: PACU
--- NOTE | 2023-10-23 10:18 | P.PNGS_ITS ---
Subjective Subjective Date of Service: 10/24/23 Interval history: Feels well. Mild incisional pain. She is tolerating phase 1 bariatric diet Physical Exam 2 Vital Signs: Vital Signs: Last Vital Signs Temp 98.2 F 10/23/23 08:33 Pulse 74 10/23/23 08:33 Resp 18 10/23/23 08:33 BP 135/67 10/23/23 08:33 Pulse Ox 98 10/23/23 08:33 O2 Del Method Room Air 10/23/23 08:33 BMI result Body Mass Index 36.4 GI: Inspection: Yes normal to inspection, Yes incision (clean, dry and intact) and Yes obesity Palpation (GI): Soft to palpation Extrem: Right lower extremity: normal to inspection (no calf tenderness) L eft lower extremity: normal to inspection ( calf tenderness) Objective Data Active Medications Albuterol Sulfate (Albuterol Sulfate (0.083%) 2.5 Mg/3 Ml Vial.Neb) 2.5 mg INHALE ONCE PRN PRN Reason: Shortness of Breath/Wheezing Lactated Ringer's (Lr) 1,000 mls @ 100 mls/hr IVCONT .Q10H WYATT Last Admin: 10/23/23 08:23 Dose: 100 mls/hr Documented By: MELISSA Labs 10/24/23 05:52 10/24/23 05:52 Labs: Laboratory Results - last 24 hr 10/23/23 08:07 Urine Test NEGATIVE Procedures Date of Service Date of Service: 10/24/23 Progress Note: A&P Assessment and plan (1) Obesity: Status: Acute Assessment and Plan: s/p laparoscopic sleeve gastrectomy, lysis of adhesions and gastropexy Doing well Will check am labs and if OK the patient will be discharged home (2) BMI 35.0-35.9,adult: Status: Acute (3) Anxiety: Status: Acute (4) Asthma: Status: Acute (5) Steatosis, liver: Status: Acute (6) Liver fibrosis: Status: Acute (7) S/P laparoscopic sleeve gastrectomy: Status: Acute (8) Congenital intra-abdominal adhesions: Status: Acute Time Spent With Patient Time: Total time managing care of this patient today ____ minutes. Quality Stroke Does the patient have a stroke diagnosis?: No VTE Prior VTE?: No VTE Risk Level:: Surgical - moderate VTE Device Contraindication: N/A - Device Ordered VTE Drug Contraindication: Treatment Not Indicated
--- NOTE | 2023-10-23 12:44 | PM.DS ---
DS: Providers Provider Date of Service: 10/24/23 Date of admission: 10/23/23 08:07 Primary care physician: Nonstaff Physician DS: Diagnosis Discharge Diagnosis (1) Obesity: Status: Acute (2) BMI 35.0-35.9,adult: Status: Acute (3) Anxiety: Status: Acute (4) Asthma: Status: Acute (5) Steatosis, liver: Status: Acute (6) Liver fibrosis: Status: Acute (7) S/P laparoscopic sleeve gastrectomy: Status: Acute (8) Congenital intra-abdominal adhesions: Status: Acute DS: Summary Hospital Course Hospital Course: ADMITTING DIAGNOSIS: obesity, anxiety, asthma ? DISCHARGE DIAGNOSIS: same, s/p laparoscopic sleeve gastrectomy ? PAST SURGICAL HISTORY: foot surgery ? PROCEDURE: upper endoscopy, laparoscopic sleeve gastrectomy ? DISCHARGE SUMMARY: ? History of Present Illness: ? The patient is a?28 year-old woman with a BMI of?40.6 kg/m2 and associated co-morbidities as described above. The patient had extensive work-up,lost?29.2 lbs preoperatively and was electively scheduled for laparoscopic, possible open sleeve gastrectomy and gastropexy. Risks and complications of the surgery were discussed with the patient in advance, particularly the possibility of , pulmonary embolism, anastomotic leak, bleeding, bowel injury, GERD, cardiac, renal or pulmonary complications. The patient understood all the risks and was in agreement with the surgical plan. ? Hospital Course: ? The patient underwent an uneventful laparoscopic sleeve gastrectomy with gastropexy on the day of admission. Postoperatively, the patient was transferred to the surgical floor. The patient received IV Acetaminophen and IV dilaudid for pain control. Patient was started on bariatric phase 1 diet POD #0. On postoperative day one, the patient was feeling well without nausea, vomiting, fevers, or tachycardia. The patient had some mild incisional pain and the abdomen was soft. ? On the morning of postoperative day one, the patient was continued on 1 ounce of water or ice every half hour. During the day, the patient did fairly well, having some incisional pain, but able to ambulate adequately and to tolerate liquids well. ? Since the patient is doing well, we decided that the patient was ready to be discharged. The patient was given instructions to follow-up with me next week and to call my office for any fever over 101, persistent abdominal pain, nausea, vomiting, GERD, symptoms of DVT such as calf tenderness, or leg swelling, or pulmonary embolism such as chest pain or shortness of breath. The patient was also instructed to drink 40-60 ounces of liquids per day using the 1-ounce cups. The patient had been given prescriptions for Tylenol for pain, Zofran prn for nausea, and pantoprazole and carafate previously. The patient was encouraged to ambulate and use the incentive spirometer. The patient was allowed to shower, but no baths, and encouraged to stay active at home. All of these instructions were given to the patient personally. All questions were answered and the patient understood all instructions, the instructions were also given to the patient in print. Time Attestation Discharge coordination time: Less than 30 minutes Quality: Safe Use of Opioids Does Pt have an Active Cancer Diagnosis on the Problem List?: No Quality: Stroke Does the patient have a stroke diagnosis?: No Physical Exam Vital Signs: Vital Signs: Last Vital Signs Temp 98.2 F 10/23/23 08:33 Pulse 74 10/23/23 08:33 Resp 18 10/23/23 08:33 BP 135/67 10/23/23 08:33 Pulse Ox 98 10/23/23 08:33 O2 Del Method Room Air 10/23/23 08:33 BMI result Body Mass Index 36.4 DS: Data Data Completed and Pending Pending studies at discharge: Pending at discharge 10/23/23 11:51 Surgical [PTH] Routine 10/23/23 12:05 Surgical [PTH] Routine Labs on day of discharge: Laboratory Results - last 24 hr 10/23/23 08:07 Urine Test NEGATIVE Discharge Plan Discharge Anticipated Discharge Date/Time: 10/24/23 10:00 Patient Disposition: Home, Self-Care Discharge Diagnosis: s/p laparoscopic sleeve gastrectomy Referrals: Physician,Nonstaff [Primary Care Provider] - 1 Week Discharge Medications: Continued pantoprazole 40 mg tablet,delayed release (DR/EC) 40 mg PO DAILY Qty: 90 0RF sucralfate 100 mg/mL suspension 10 ml PO BID Qty: 600 2RF Flovent HFA 1 puff PO Q12H PRN (Reason: Shortness Of Breath Or Wheezing) ondansetron HCl 4 mg Tablet 4 mg PO Q6H PRN (Reason: Nausea And Vomiting) albuterol sulfate 90 mcg/actuation HFA aerosol inhaler 1 - 2 puff inhalation Q4-6H PRN (Reason: Shortness Of Breath Or Wheezing) citalopram 40 mg tablet 40 mg PO DAILY Discontinued cholecalciferol (vitamin D3) 125 mcg (5,000 unit) capsule 125 mcg PO DAILY Qty: 90 0RF Rx Instructions: 90-day supply thiamine HCl (vitamin B1) 100 mg tablet 100 mg PO DAILY Qty: 90 0RF Rx Instructions: 90-day supply Discharge Orders: Discharge Order (Routine); Ordered 10/24/23 Ordered By: Faustino Gomez Activity on Discharge: No heavy lifting Stand Alone Forms: Patient Portal Discharge page Care Plan Goals: weight loss Health Concerns: obesity Plan of Treatment: No tub baths, sex or returning to work until discussed at first post op appointment. No exercise, alcohol, tobacco or illegal drug use. Continue to use incentive spirometer hourly while awake. Walk in home for 5- 10 minutes every 2 hours during the first week. Follow all instructions in the bariatric handbook and call with any questions.Discharge Instructions 1. Please call your doctor or come back to the emergency room should any new symptoms arise. 2. You will receive a courtesy call from [facility] 24-48 hours after discharge. 3. Activity: abstain from alcohol, practice limited stair climbing, no bending, no driving, no exercise, no illicit substances, no lifting, no sex, no tub bath, no work. 4. Diet: continue as discussed with Dr. Gomez. 5. Dressing Change/Wound Care: Your incision is covered by clear bandages and guaze underneath. If the area is tender, you may apply an ice pack for short intervals (no more than 20 minutes on, followed by at least 20 minutes off). Do not apply heat. Do not use creams, lotions, or topical antibiotics unless instructed to do so by your surgeon. These can cause infection or allergic reaction. 6. Call your doctor if: - Your temperature exceeds 101.5 F - You experience excessive pain or swelling - You have an unexpected reaction to medication - You have excessive bleeding - You experience continued vomiting/nausea - Your incision begins to separate - Your incision shows signs of infection such as increased redness, swelling, excessive pain, heat, or drainage (light blood or clear fluid is normal) 7. General instructions: No lifting greater than 5 lbs for 1 week and not more than 20lbs the next 3?weeks. No driving until seen at the office in 5-7 days after surgery. If you do not move your bowels in the next 2 days, please tell?Dr. Gomez. Please walk around your home every hour or two to prevent blood clots from forming in your legs. You do not need to wake from sleeping to walk. Please sleep in a bed or couch to prevent kinking at the hips and knees. Please take your incentive spirometer (your lung advisory services associate) home with you and use it for the next few days to prevent pneumonia. You may shower, no hot tubs, baths or swimming pools.?Please follow the post op diet instructions you are?given by Dr Gomez? and text me daily at 5-6pm for an update.?If you have any issues or concerns or questions please communicate this to him via text.? The Celebrate shakes have all of the bariatric vitamins you need if you consume these shakes. If you are drinking other protein shakes, you will need to purchase the Celebrate multivitamins and calcium that are available in the hospital gift shop on the first floor of the [facility].??Do not take anything without first discussing with Dr Gomez. Please make sure you are consuming at least 40 ounces of fluids per day starting the?day AFTER your discharge from the hospital. Always drink 1-2 ml per minute using the 5ml?syringe. If you drink faster you may experience?bloating,?gas pain, burping, nausea or heartburn. In that case please slow down your pace and use the syringe to?understand better the?proper?pace and volume of drinking. Do not hesitate to contact the office with any questions at . The patient's medical history has been reviewed and they are considered low risk for post op DVT and therefore DVT prophylaxis is not considered necessary. Travel after surgery was reviewed. The patient has not disclosed any travel plans during the first 30 days after surgery and they have been advised that within the first 30 days after surgery any bus, plane, train or car travel over 2 hours in duration is contraindicated due to the possibility of developing blood clots from immobility. Any travel, needs to include periods of ambulation of 10 minutes in duration every 2 hours.? The patient was instructed to discuss any plans for travel during this period with their bariatric surgeon. Assessment: stable s/p laparoscopic sleeve gastrectomy Discharge Date/Time: 10/24/23 09:36
[2023-10-23] MEDS: fentaNYL citrate/PF 100 MCG/2 ML VIAL 25 MCG IVPUSH (13:10)
[2023-10-23 13:19] LABS: Hemoglobin 13.7 g/dl (12.0-16.0)
[2023-10-23 13:27] LABS: Anion Gap 16 (12-20); Blood Urea Nitrogen 12 mg/dL (9-16); Calcium 8.6 mg/dL (8.4-10.2); Carbon Dioxide 20 mmol/L (22-29); Chloride 105 mmol/L (96-108); Creatinine Clr Calc Pharmacy 115.5; Estimated Glomerular Filt Rate > 60; Glucose Random 79 mg/dL (60-115); Potassium 4.3 mmol/L (3.3-5.1); Sodium 137 mmol/L (135-145)
[2023-10-23] MEDS: ceFAZolin Sodium/Dextrose,Iso 2 GM/50 ML PIGGYBACK IV (16:16)
[2023-10-23] MEDS: Metoclopramide HCl 10 MG/2 ML VIAL IVPUSH (16:17)
--- NOTE | 2023-10-23 16:23 | PC.NURSE ---
Pt received from PACU oriented to room and call [facility] system . Abd Lap sites CDI binder in use routine post op care . instructed in use of incentive spirometer
[2023-10-23] MEDS: HYDROmorphone HCl 0.5 MG/0.5 ML SYRINGE 0.25 MG IVPUSH (16:50)
--- NOTE | 2023-10-23 16:52 | PC.NURSE ---
Pt ambulated to BR voiding w/o difficulty
[2023-10-23] MEDS: Acetaminophen 1,000 MG/100 ML PIGGYBACK 16.7 MG IV ×2 (18:17→22:30)
--- NOTE | 2023-10-23 19:24 | PHA.MEDREC ---
Pharmacy Consult ? Medication Reconciliation Pharmacy has completed the medication reconciliation. Patient confirmed medications.
[2023-10-23] MEDS: Famotidine/PF 20 MG/2 ML VIAL IVPUSH (20:05)
[2023-10-24 03:40] VITALS: BP 114/68; PULSE 68; RESP 18; TEMP 36.6; O2SAT 97
[2023-10-24] MEDS: Acetaminophen 1,000 MG/100 ML PIGGYBACK 16.7 MG IV (04:40)
[2023-10-24 06:15] LABS: Basophils Percent Auto 0.1 % (0-2); Eosinophils Percent Auto 0.1 % (0-4); Hematocrit 41.6 % (37.0-47.0); Hemoglobin 14.1 g/dl (12.0-16.0); Imm Gran Abs Auto 0.09 X10*3/uL (0.00-0.03); Imm Gran Pct Auto 0.6 % (0.0-0.4); Lymphocytes Absolute Auto 1.2 X10*3/uL (1.2-4.9); Lymphocytes Percent Auto 7.7 % (20-40); Mean Corpuscular HGB Conc 33.9 g/dl (31.0-35.0); Mean Corpuscular Hemoglobin 28.7 pg (27.0-33.0); Mean Corpuscular Volume 84.7 fL (80.0-98.0); Mean Platelet Volume 11.3 fL (9.4-12.3); Monocytes Absolute Auto 0.6 X10*3/uL (0.1-1.2); Monocytes Percent Auto 4.1 % (2-11); Neutrophils Absolute Auto 13.8 x10*3/uL (2.0-8.3); Neutrophils Percent Auto 87.4 % (45-73); Red Blood Count 4.91 X10*6/uL (4.20-5.50); Red Cell Distribution Width 12.6 % (11.0-16.0)
[2023-10-24 06:16] LABS: Platelet Count 203 X10*3/uL (160-400); White Blood Count 15.8 X10*3/uL (4.8-10.8)
[2023-10-24 06:26] LABS: Anion Gap 16 (12-20); Blood Urea Nitrogen 8 mg/dL (9-16); Calcium 9.4 mg/dL (8.4-10.2); Carbon Dioxide 18 mmol/L (22-29); Chloride 105 mmol/L (96-108); Creatinine Clr Calc Pharmacy 134.6; Estimated Glomerular Filt Rate > 60; Glucose Random 106 mg/dL (60-115); Potassium 4.4 mmol/L (3.3-5.1); Sodium 135 mmol/L (135-145)
[2023-10-24 07:25] VITALS: BP 123/67; PULSE 72; RESP 18; TEMP 36.8; O2SAT 96
[2023-10-24] MEDS: Famotidine/PF 20 MG/2 ML VIAL IVPUSH (08:09)
--- NOTE | 2023-10-24 10:12 | MHC.CM.PN ---
CM MET WITH PT AND AT BEDSIDE PT LIVES AT HOME WITH HIM AND THEIR DAUGHTER SHE IS INDEPENDENT WITH CARE AND WORKS SHE HAS A NEBULIZER SHE USES PRN AND NO SERVICES PT DOES NOT HAVE A HCP AND DECLINES TO COMPLETE ONE TODAY SHE REPORTS HER PCP IS [facility] AT [facility] PT WILL DC HOME TODAY WITH NO SERVICES VIA FAMILY TRANSPORT
--- NOTE | 2023-10-24 15:03 | HO.POSTANES ---
Post Anesthesia Evaluation Post Anesthesia Evaluation Date of Service: 10/24/23 Vital Signs: Vital Signs Temp Pulse Resp BP Pulse Ox O2 Del Method 10/24/23 07:25 98.3 F 72 18 123/67 96 Room Air 10/24/23 03:40 97.9 F 68 18 114/68 97 Room Air Anesthesia: General Endotracheal-GETA Mental Status: Awake Pain Control: Satisfactory Nausea/Vomiting: None Hydration: Adequate Anesthesia-Related Issues: No Anes. Related Issues
== END 2023-10-24 09:36 | disposition home or self-care (01) | DRG 403 ==
LOC: HO.SSSA 12:48 → HO.S3 15:25
PROVIDERS: Nurse Practitioner; Physician Assistant Surgical; Admitting Provider Surgery; Referring Provider Surgery; Visit Provider Surgery
PROC: 0DB64Z3 Excision of Stomach, Percutaneous Endoscopic Approach, Vertical (ICD-10-PCS; CPT 43845; principal; 2023-10-23 10:10)
DX: E66.01 Morbid (severe) obesity due to excess calories (principal); K74.00 Hepatic fibrosis, unspecified; Q43.3 Congenital malformations of intestinal fixation; F41.9 Anxiety disorder, unspecified; Z68.35 Body mass index [BMI] 35.0-35.9, adult; J45.909 Unspecified asthma, uncomplicated; K76.0 Fatty (change of) liver, not elsewhere classified; Z79.899 Other long term (current) drug therapy
CPT/HCPCS: 36415; 80048; 81025; 85014; 85018; 85025; 86850; 86900; 86901; 88304; 88305; 88307; 88342; A4649; C9088; C9145; J0131; J0690; J1100; J1170; J2250; J2405; J2550; J2704; J2765; J2795; J3010; J7120

== ENCOUNTER → 2023-10-23 08:07 | Outpatient (BNV) | payer OTHER, SELFPAY | PROVIDERS: Admitting Provider Surgery; Visit Provider Surgery | DX: E66.01 Morbid (severe) obesity due to excess calories (principal); Z68.35 Body mass index [BMI] 35.0-35.9, adult; Z90.3 Acquired absence of stomach [part of]; Z98.84 Bariatric surgery status | CPT/HCPCS: 43659; 43775; 99024 ==

== ENCOUNTER 2023-10-28 10:28 | Outpatient (AMB) | payer OTHER, SELFPAY ==
--- NOTE | 2023-10-28 10:45 | MHC.OFFVISWM ---
Intake VS Expanded 10/28/23 11:18 BP 134/71 Blood Pressure Location Rt brachial Blood Pressure Position Sitting Pulse 79 Pulse Source Pulse Oximeter Temp 97.8 F Temperature Source Temporal Artery Scan Pulse Oximetry 99 Oxygen Delivery Method Room Air Height 5 ft 4 in Weight 207 lb 9.6 oz BMI 35.6 Body Fat % 41.9 Body Fat Mass 86.8 Fat Free Mass 120.6 Visceral Fat Rating 8.0 Body Water % 41.8 Body Water Mass 86.6 Muscle Mass/Score 114.4 Basal Metabolic Rate/Score 1,718 Intake Visit Reasons: (OV) PO LSG 10/23/23 Allergies No Known Allergies Allergy (Verified 10/28/23 11:01) HPI HPI Comments History of Present Illness Details Patient is very pleasant 28-year-old female who returns to the office today, status post 5 days laparoscopic sleeve gastrectomy performed on 10/23/2023. She denies any significant pain. She is tolerating 3 celebrate 4 in 1 shakes with 1 screw each in approximately 40-50 oz of fluid. She is moved her bowels and denies any significant pain. [facility] Medical History (Updated 10/25/23 @ 00:02 by Hugo Georges) Anxiety Asthma Morbid obesity Surgical History (Updated 10/28/23 @ 11:01 by Daniela Watson CMA) S/P laparoscopic sleeve gastrectomy History of esophagogastroduodenoscopy (EGD) (09/03/23) Hx of foot surgery Hx of wisdom tooth extraction Social History Household Members: Significant Other and Children Housing: House Are you a primary director of health care marketing to a significant other at home: Yes (daughter) Do you presently have visiting nurse or other home services: No 75 years or older and lives alone: No Patient Tobacco Use Status: Never used Tobacco Second Hand Smoke Exposure: No service: No Physical Exam Vital Signs: Last Vital Signs Temp 97.8 F 10/28/23 11:18 Pulse 79 10/28/23 11:18 BP 134/71 10/28/23 11:18 Pulse Ox 99 10/28/23 11:18 Oxygen Delivery Method Room Air 10/28/23 11:18 BMI result Body Mass Index 35.6 GI Other: Mild ecchymosis otherwise clean, dry and intact Assessment & Plan Assessment & Plan (1) S/P laparoscopic sleeve gastrectomy: Code(s): Z98.84 - Bariatric surgery status Plan: POD 5 s/p LSG on 10/23/[address] Gomez Weight loss prior to surgery was 29.2 pounds or 12.3% TBWL. Original weight on 08/04/2023 was 236.6 pounds and op weight was 207.4 pounds. Be sure to text Dr Gomez exactly 1 week after surgery your weight from your home scale so he can adjust your meal plan. Continue meal plan until f/u leah Tang in 2 weeks May shower, no submersion in bath for another week Continue abdominal binder with activity and exercise for the next 2 weeks. Exercise prior to surgery was Pelaton bike, may resume No abdominal exercises for 6 weeks post operatively Will be emailed link to post op video for review Reminded of the pace of drinking, 2 mL per minute, 1 oz/15 min. Coding Level of Care Code Global (62697) Diagnoses S/P laparoscopic sleeve gastrectomy Z98.84
[2023-10-28 11:18] VITALS: BP 134/71; PULSE 79; TEMP 36.6; O2SAT 99; BMI 35.6
== END 2023-10-28 12:22 | disposition home or self-care (01) ==
PROVIDERS: Visit Provider Physician Assistant Surgical
DX: Z98.84 Bariatric surgery status (principal)
CPT/HCPCS: 99024

== ENCOUNTER → 2023-10-28 10:28 | Outpatient (BNVA) | payer OTHER, SELFPAY | PROVIDERS: Visit Provider Physician Assistant Surgical | DX: Z48.815 Encounter for surgical aftercare following surgery on the digestive system (principal); Z98.84 Bariatric surgery status | CPT/HCPCS: 99212 ==

== ENCOUNTER 2023-11-17 10:32 | Outpatient (AMB) | payer OTHER, SELFPAY ==
--- NOTE | 2023-11-17 10:35 | A.OFFVIS_ITS ---
Intake VS Expanded 11/17/23 10:43 BP 127/55 L Blood Pressure Location Rt brachial Blood Pressure Position Sitting Pulse 85 Pulse Source Pulse Oximeter Temp 97.2 F Temperature Source Tympanic Pulse Oximetry 98 Oxygen Delivery Method Room Air Height 5 ft 4 in Weight 195 lb BMI 33.5 Body Fat % 38.5 Body Fat Mass 75.0 Fat Free Mass 120.0 Visceral Fat Rating 7.0 Body Water % 44.2 Body Water Mass 86.2 Muscle Mass/Score 113.8 Basal Metabolic Rate/Score 1,690 Intake Visit Reasons: (OV) PO LSG 10/23/23 Director Of Education And Training Required: No Allergies No Known Allergies Allergy (Verified 11/17/23 10:49) Medication List - Last Reconciled 11/17/23 by VIRY Preciado albuterol sulfate 90 mcg/actuation 1 - 2 puffs inhalation Q4-6H PRN citalopram 40 mg PO DAILY docusate sodium (Colace) 100 mg PO DAILY [Flovent HFA 1 puff PO Q12H PRN] pantoprazole 40 mg PO DAILY sucralfate 10 mL PO BID HPI HPI Comments History of Present Illness Details This?a?28?yo female who is s/p LSG without hiatal hernia repair on?10/23/2023. Presents for 1 month post op visit. Weight today is 195 pounds, with a BMI of 33.5. There has been a 41.6 pound weight loss,(initial weight 236.6 pounds) since starting the program on 08/04/23 reflecting a 17.5% total body weight loss and a weight loss of 12.4 pounds since surgery (operative weight 207.4 pounds) reflecting a 5.9% TBWL since surgery. No complaints of nausea, emesis, abdominal pain or reflux. Reports infrequent but normal bowel movements every 1- 2 days and uses stool softeners regularly. She is satisfied with the meal plan and does not want to change at this time. She is going to the races in [place] by car and was advised to do ankle pumps while in the car and stop to get out and walk around ever 2 hours. Present meal plan includes: 10-12pm 2 scoops celebrate 4 in 1 in 8 o z almond milk 2-4pm 2 scoops 4 in 1 shake 5-8pm celebrate protein bar Drinking 50-60 oz water ? Exercise routine includes: pelaton bike 300 pretty per day PFSH Medical History (Updated 11/03/23 @ 22:27 by Faustino Gomez MD) Anxiety Asthma Morbid obesity Surgical History (Updated 10/28/23 @ 11:01 by Daniela Watson CMA) S/P laparoscopic sleeve gastrectomy History of esophagogastroduodenoscopy (EGD) (09/03/23) Hx of foot surgery Hx of wisdom tooth extraction Social History Household Members: Significant Other and Children Housing: House Are you a primary child care sitter to a significant other at home: Yes (daughter) Do you presently have visiting nurse or other home services: No 75 years or older and lives alone: No Patient Tobacco Use Status: Never used Tobacco Second Hand Smoke Exposure: No service: No Physical Exam GI Inspection: Yes incision (c/d/i) Assessment & Plan Assessment & Plan (1) Obesity: Code(s): E66.9 - Obesity, unspecified Qualifiers: Obesity type: due to excess calories Obesity classification: adult class 2 (BMI 35 - 39.9) Serious obesity comorbidity presence: with serious comorbidity Body mass index: BMI 38.0-38.9 Qualified Code(s): E66.01 - Morbid (severe) obesity due to excess calories; Z68.38 - Body mass index [BMI] 38.0- 38.9, adult Plan: She will continue her current plan. Return to the office in approximately 1 month. Communicate weekly by text. Coding Level of Care Code Global (20961) Diagnoses Class 2 severe obesity due to excess calories with serious comorbidity and body mass index (BMI) of 38.0 to 38.9 in adult E66.01; Z68.38 Obesity type: due to excess calories Obesity classification: adult class 2 (BMI 35 - 39.9) Serious obesity comorbidity presence: with serious comorbidity Body mass index: BMI 38.0-38.9
[2023-11-17 10:43] VITALS: BP 127/55; PULSE 85; TEMP 36.2; O2SAT 98; BMI 33.5
== END 2023-11-17 11:03 | disposition home or self-care (01) ==
PROVIDERS: Visit Provider Physician Assistant Surgical
DX: E66.01 Morbid (severe) obesity due to excess calories (principal); Z68.38 Body mass index [BMI] 38.0-38.9, adult
CPT/HCPCS: 99024

== ENCOUNTER → 2023-11-17 10:32 | Outpatient (BNVA) | payer OTHER, SELFPAY | PROVIDERS: Visit Provider Physician Assistant Surgical | DX: Z48.815 Encounter for surgical aftercare following surgery on the digestive system (principal); E66.01 Morbid (severe) obesity due to excess calories; Z68.33 Body mass index [BMI] 33.0-33.9, adult | CPT/HCPCS: 99212 ==

== ENCOUNTER 2023-12-15 11:31 | Outpatient (AMB) | payer OTHER, SELFPAY ==
[2023-12-15 08:53] VITALS: BMI 29.8
--- NOTE | 2023-12-15 08:53 | A.OFFVIS_ITS ---
VS Expanded 12/15/23 08:53 Height 5 ft 4 in Weight 173 lb 9.6 oz BMI 29.8 Body Fat % 35.2 Body Fat Mass 61 Fat Free Mass 112.4 Visceral Fat Rating 12 Body Water % 44.5 Body Water Mass 77.2 Muscle Mass/Score 105.6 Basal Metabolic Rate/Score 1,475 Intake Visit Reasons: (tV) PO LSG 10/23/23 Allergies No Known Allergies Allergy (Verified 11/17/23 10:49) HPI Comments Details: This?a?28?yo female who is s/p LSG without hiatal hernia repair on?10/23/2023. Presents for 1.5 month post op visit. Weight today is 173.6 pounds, with a BMI of 29.8. There has been a 63 pound weight loss,(initial weight 236.6 pounds) since starting the program on 08/04/23 reflecting a 26.6% total body weight loss and a weight loss of 33.8 pounds since surgery (operative weight 207.4 pounds) reflecting a 16.2% TBWL since surgery. No complaints of nausea, emesis, abdominal pain or reflux. Reports infrequent but normal bowel movements every 1- 2 days and uses stool softeners regularly. She states that she feels great. Now in a routine of exercise and eating. Does not want to continue the last shake of the day. She feels as though it is difficult to ?get it down? Present meal plan includes: 8-10am 1 scoops celebrate 4 in 1 in 8 oz almond milk 11-1pm 1 scoop 4 in 1 2-4pm celebrate bar 5pm 4 forks protein and 4 forks veg 7-9 pm another shake 1 scoop Drinking 60 oz water ? Exercise routine includes: pelaton bike, nightly 300 pretty per day [facility] Medical History (Updated 12/15/23 @ 11:48 by VIRY Preciado) Anxiety Asthma Morbid obesity Surgical History (Updated 10/28/23 @ 11:01 by Daniela Watson CMA) S/P laparoscopic sleeve gastrectomy History of esophagogastroduodenoscopy (EGD) (09/03/23) Hx of foot surgery Hx of wisdom tooth extraction Social History Household Members: Significant Other and Children Housing: House Are you a primary child care associate teacher to a significant other at home: Yes (daughter) Do you presently have visiting nurse or other home services: No 75 years or older and lives alone: No Patient Tobacco Use Status: Never used Tobacco Second Hand Smoke Exposure: No service: No Telehealth Telehealth Telehealth Platform: Telephone Location of provider rendering services: practice address Location of patient: address on file Patient Identification confirmed using: Name, : Yes Telehealth method: voice only Patient verbally consented to treatment: Yes Patient verbally consented to billing insurance company: Yes Patient informed of any privacy concerns related to visit: Yes Minutes spent on Phone/Video with Pt.: 15 Assessment & Plan Assessment & Plan (1) Overweight (BMI 25.0-29.9): Code(s): E66.3 - Overweight Category: Medical Plan: Overall, the patient is doing very well. She is generally satisfied with her me al plan although does not wish to continue the last shake of the evening. We will change her meal plans slightly: 8-10am 1.5 scoops celebrate 4 in 1 in 8 oz almond milk 11-1pm 1.5 scoop 4 in 1 2-4pm celebrate bar 5pm 4 forks protein and 4 forks veg She certainly could use 2 scoops in the 1st shake and 1 scoop in the 2nd shake if she wishes. Continue her current exercise regimen of Peloton bike nightly. Return to the office 4-6 weeks
== END 2023-12-15 11:49 | disposition home or self-care (01) ==
LOC: HO.HBS 11:31
PROVIDERS: Visit Provider Physician Assistant Surgical
DX: E66.3 Overweight (principal)
CPT/HCPCS: 99024

== ENCOUNTER → 2023-12-15 11:31 | Outpatient (BNVA) | payer OTHER, SELFPAY | PROVIDERS: Visit Provider Physician Assistant Surgical | DX: E66.3 Overweight (principal); Z68.29 Body mass index [BMI] 29.0-29.9, adult | CPT/HCPCS: 99212 ==

== ENCOUNTER 2024-01-28 09:56 | Outpatient (AMB) | payer OTHER, SELFPAY ==
[2024-01-28 08:58] VITALS: BMI 26.1
--- NOTE | 2024-01-28 08:58 | A.OFFVIS_ITS ---
VS Expanded 01/28/24 08:58 Height 5 ft 4 in Weight 151 lb 12.8 oz BMI 26.1 Body Fat % 29.4 Body Fat Mass 44.6 Fat Free Mass 107.2 Visceral Fat Rating 9 Body Water % 48.4 Body Water Mass 73.4 Muscle Mass/Score 100.8 Basal Metabolic Rate/Score 1,410 Intake Visit Reasons: (tV) PO LSG 10/23/23 Schedule Supervisor Required: No Allergies No Known Allergies Allergy (Verified 11/17/23 10:49) Medication List - Last Reconciled 01/28/24 by VIRY Preciado albuterol sulfate 90 mcg/actuation 1 - 2 puffs inhalation Q4-6H PRN citalopram 40 mg PO DAILY docusate sodium (Colace) 100 mg PO DAILY [Flovent HFA 1 puff PO Q12H PRN] HPI Comments Details: This?a?28?yo female who is s/p LSG without hiatal hernia repair on?10/23/2023. Presents for 3 month post op visit. Weight today is 151.8 pounds, with a BMI of 26.1. There has been a 84.8 pound weight loss,(initial weight 236.6 pounds) since starting the program on 08/04/23 reflecting a 35.8% total body weight loss and a weight loss of 55.6 pounds since surgery (operative weight 207.4 pounds) reflecting a 26.8% TBWL since surgery. No complaints of nausea, emesis, abdominal pain or reflux. Reports infrequent but normal bowel movements every 1- 2 days and uses stool softeners regularly. She states that she feels great. Now in a routine of exercise and eating. She states she wants to use a different shake product. Present meal plan includes: 8-10am 2 scoops celebrate 4 in 1 in 8 oz almond milk 11-1pm 1 scoop 4 in 1 2-4pm celebrate bar 5pm 4 forks protein and 4 forks veg Drinking 60 oz water ? Exercise routine includes: pelaton bike, nightly 300 pretty per day PFSH Medical History Anxiety Asthma Morbid obesity Surgical History S/P laparoscopic sleeve gastrectomy History of esophagogastroduodenoscopy (EGD) (09/03/23) Hx of foot surgery Hx of wisdom tooth extraction Social History Household Members: Significant Other and Children Housing: House Are you a primary career services manager to a significant other at home: Yes (daughter) Do you presently have visiting nurse or other home services: No 75 years or older and lives alone: No Patient Tobacco Use Status: Never used Tobacco Second Hand Smoke Exposure: No service: No Telehealth Telehealth Telehealth Platform: Telephone Location of provider rendering services: practice address Location of patient: address on file Patient Identification confirmed using: Name, : Yes Telehealth method: voice only Patient verbally consented to treatment: Yes Patient verbally consented to billing insurance company: Yes Patient informed of any privacy concerns related to visit: Yes Minutes spent on Phone/Video with Pt.: 18 Assessment & Plan Assessment & Plan (1) Overweight (BMI 25.0-29.9): Code(s): E66.3 - Overweight Category: Medical Plan: Patient is doing extremely well. She wishes to change protein shake. 8-10am 2 scoops orgain in 8 oz almond milk 11-1pm 1 scoop orgain 2-4pm celebrate bar 5pm 6 forks protein and 6 forks veg Continue Peloton exercise bike nightly for 300 calories. Return to clinic in 6 weeks with the understanding that she will text sooner should she have any questions or concerns. Additionally encouraged to text weight weekly.
== END 2024-01-28 10:52 | disposition home or self-care (01) ==
LOC: HO.HBS 09:56
PROVIDERS: Visit Provider Physician Assistant Surgical
DX: E66.3 Overweight (principal); Z68.26 Body mass index [BMI] 26.0-26.9, adult
CPT/HCPCS: 99213

== ENCOUNTER → 2024-01-28 09:56 | Outpatient (BNVA) | payer OTHER, SELFPAY | PROVIDERS: Visit Provider Physician Assistant Surgical ==

== ENCOUNTER 2024-05-13 15:00 | Outpatient (AMB) | payer OTHER, SELFPAY ==
--- NOTE | 2024-05-13 14:08 | MHC.OFFVISWM ---
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 Presents for 7 month post op visit. Weight today is 144.2 pounds, with a BMI of 24.7. There has been a 92.4 pound weight loss,(initial weight 236.6 pounds) since starting the program on 08/04/23 reflecting a 39% total body weight loss and a weight loss of 63.2 pounds since surgery (operative weight 207.4 pounds) reflecting a 30.4% TBWL since surgery. No complaints of nausea, emesis, abdominal pain or reflux. Reports infrequent but normal bowel movements every 1-2 days and uses stool softeners regularly. taking bariatric fusion mvi She states that she feels great. Now in a routine of exercise and eating. She states she wants to use a different shake product. Present meal plan includes: 8-10am 2 scoops orgain in 8 oz almond milk 11-1pm 1 scoop orgain 2-4pm celebrate bar 5pm 6 forks protein and 6 forks veg Drinking 60 oz water ? Exercise routine includes: pelaton bike, nightly 300 pretty per day [facility] Medical History Anxiety Asthma Morbid obesity Surgical History S/P laparoscopic sleeve gastrectomy History of esophagogastroduodenoscopy (EGD) (09/03/23) Hx of foot surgery Hx of wisdom tooth extraction Social History Household Members: Significant Other and Children Housing: House Are you a primary patient care coordinator to a significant other at home: Yes (daughter) Do you presently have visiting nurse or other home services: No 75 years or older and lives alone: No Patient Tobacco Use Status: Never used Tobacco Second Hand Smoke Exposure: No service: No Telehealth Telehealth Telehealth Platform: Telephone Location of provider rendering services: practice address Location of patient: address on file Patient Identification confirmed using: Name, : Yes Telehealth method: voice only Patient verbally consented to treatment: Yes Patient verbally consented to billing insurance company: Yes Patient informed of any privacy concerns related to visit: Yes Minutes spent on Phone/Video with Pt.: 10 Assessment & Plan Assessment & Plan (1) S/P laparoscopic sleeve gastrectomy: Code(s): Z98.84 - Bariatric surgery status Category: Surgical Plan: continue current meal plan. She is doing excellent. She feels great and we will continue her current meal plan and exercise plan. She has been encouraged to text weekly and with any questions or concerns. Follow-up as scheduled.
[2024-05-13 14:10] VITALS: BMI 24.7
--- OUTSIDE RECORDS SUMMARY | 2024-05-13 15:11 | XMS_ITS | Continuity of Care Document ---
Author Organization [facility] Address [address] [place] [address]- Care Team Providers Care Russian Teacher Name Role Phone Bianca TAFOYA, Jelly Long Primary Care Physician Encounter [facility] Date(s): 03/02/24 - 03/02/[address] [address]- Discharge Disposition: A-D/C Home Attending Physician: Croy Hernandes MD Admitting Physician: Cory Hernandes MD Referring Physician: Not on Staff, Referring [...] Exam Date Time Procedure Performing Provider Status 03/02/24 8:13 PM Chest 2 Views Frontal and Lat Jayleen Norman (Verified) Notes: (Chest 2 Views Frontal and Lat) Reason For Exam: Chest Pain;Other: RESULT: Chest 2 Views Frontal and Lat Chest 2 Views Frontal and Lat Hx of Present Illness: started with palpatations today and ongong upper back pain x 1 week no fevers no chills no sob no diet pills or stimulant use; Reason: Other:; Chest Pain; Clinical Question(s):Other: COMPARISON: None. FINDINGS: LINES AND TUBES: None. LUNGS AND PLEURA: Clear lungs. Normal pulmonary vascularity. No pleural effusion. No pneumothorax. HEART, MEDIASTINUM AND PILAR: Heart is normal in size. Normal mediastinal and hilar contour. BONES AND SOFT TISSUES: No acute abnormality. IMPRESSION: No acute abnormality. WSN: [id number] Ordering Physician: Jason Holman Dictated By: Lucio Guzman MD Dictated Date/Time: 03/02/24 9:12 pm Reviewed By: Lucio Guzman MD Signed By: Lucio Guzman MD Signed Date/Time: 03/02/24 9:12 pm Transcribed By: SUDEEP Transcribed Date/Time: 03/02/24 9:11 pm Vital Signs Most recent to oldest [Reference Range]: 1 2 3 Height 163 cm (03/02/24 10:53 PM) 163 cm (03/02/24 7:56 PM) Weight 76.1 kg (03/02/24 10:53 PM) 76.1 kg (03/02/24 7:56 PM) Oxygen Saturation [94-100 %] 98 % (03/02/24 10:53 PM) 100 % (03/02/24 7:56 PM) 100 % (03/02/24 7:56 PM) Pulse Rate [55-90 bpm] 62 bpm (03/02/24 10:53 PM) 95 bpm *H* (03/02/24 7:56 PM) 123 bpm *H* (03/02/24 7:56 PM) Body Mass Index [18.5-24.99 kg/m2] 28.64 kg/m2 *H* (03/02/24 10:53 PM) Blood Pressure [90-138/55-84 mm Hg] 109/72mm Hg (03/02/24 10:53 PM) 139/92mm Hg *H* (03/02/24 7:56 PM) Respiratory Rate [16-30 br/min] 19 br/min (03/02/24 10:53 PM) 18 br/min (03/02/24 7:56 PM) 20 br/min (03/02/24 7:56 PM) Temperature [96.8-100.4 DegF] 97.9 DegF (03/02/24 10:53 PM) 98.5 DegF (03/02/24 7:56 PM) Mode of Delivery (Oxygen) Room air (03/02/24 10:53 PM) Room air (03/02/24 7:56 PM) Room air (03/02/24 7:56 PM) Blood pressure sites Arm, left (03/02/24 10:53 PM) Arm, right (03/02/24 7:56 PM) Temperature Route Oral (03/02/24 10:53 PM) Oral (03/02/24 7:56 PM) Dry Weight 76.1 kg (03/02/24 10:53 PM) 76.1 kg (03/02/24 7:56 PM) Weight Obtained Via Standing scale (03/02/24 7:56 PM) Dry Weight Obtained Via Standing scale (03/02/24 7:56 PM) Social History Social History Type Response Smoking Status Never (less than 100 in lifetime) entered on: 05/18/20 Sex Note * Cory Hernandes MD: PERFORM Event Display: Patient Education Leaflets Authored Date: [id number] Premature Ventricular Contractions ?? Premature Ventricular Contractions - Video As the name suggests, premature ventricular contractions are contractions in the lower chambers of the heart that occur too early in the rhythm sequence. These contractions, also called Paces, are common, particularly in older adults. This video discusses what effect these contractions can have on your health. To view the video go to this web address: [email or web address], scan this QR code with your smart phone Last Reviewed Date: 2020 ?? [employer]. All rights reserved. This information is not intended as a substitute for professional medical care. Always follow your healthcare professional's instructions. ?? * Cory Hernandes MD: PERFORM Event Display: Patient Education Leaflets Authored Date: [id number] Heart Palpitations ?? [id number] Heart Palpitations Palpitations are the feeling that your heart is beating hard, fast, or irregular. Some describe it as pounding, flip-flopping in the chest, or skipped beats. Palpitations may occur in someone with heart disease. But they can also occur in a healthy person. Heart-related causes: ??? Heart rhythm problem (arrhythmia) ??? Heart valve disease ??? Disease of the heart muscle (cardiomyopathy) ??? Coronary artery disease ??? High blood pressure Cpn-bqtny-sxevcju causes: ??? Certain medicines such as asthma inhalers and decongestants ??? Some herbal supplements, energydrinks and pills, and weight loss pills ??? Illegal stimulant drugs such as cocaine, crank, methamphetamine, PCP, and ecstasy ??? Caffeine, alcohol, and tobacco ??? Health conditions such as thyroid disease, anemia, anxiety, and panic disorder Sometimes the cause can't be found. Home care Follow these home care tips: ??? Don't use too much caffeine, alcohol, or tobacco, or any stimulantdrugs. ??? Tell your doctor about any prescription or colk-iza-jmgqfja or herbal medicines you take. ?? Follow-up care ??? Follow up with your doctor, or as advised. ?? Call 911 This is the fastest and safest way to get to the emergency department. The paramedics can also start treatment on the way to the hospital, if needed. Don't wait until your symptoms are severe to call 911. These are reasons to call 911: ??? Chest pain ??? Shortness of breath ??? Feeling lightheaded, faint, or dizzy, or losing consciousness ??? Veryirregular heartbeat ??? Rapid heartbeat that makes you uncomfortable ??? Slower than usual heart rate along with symptoms ??? Chest pain with weakness, dizziness,??heavy sweating, nausea, or vomiting??? Extreme drowsiness, confusion, or weakness ??? Weakness of an arm or leg, or on one side of theface ??? Trouble with speech or vision ?? When to seek medical advice Call your healthcare provider right away if you have palpitations that last longer than normal, or are different from your past palpitations. ?? Last Reviewed Date: 2021 ?? [id number] [employer]. All rights reserved. This information is not intended as a substitute for professional medical care. Always follow your healthcare professional's instructions. ?? Patient Care team information Care Team Personnel Name: Bianca TAFOYA, Jelly Long Position: [facility] Associate Professional Member Role: PCP Address: Address: [address] [place] [id number]- Care Team Related Persons Name: MIKE BOSWELL Address: [address] [place] [address] Name: INES GARCIA Address: home [address] [place] [address]
== END 2024-05-13 15:12 | disposition home or self-care (01) ==
LOC: HO.HBS 15:10
PROVIDERS: Visit Provider Physician Assistant Surgical
DX: Z71.3 Dietary counseling and surveillance (principal); Z90.3 Acquired absence of stomach [part of]; Z98.84 Bariatric surgery status
CPT/HCPCS: 99213

== ENCOUNTER → 2024-05-13 15:00 | Outpatient (BNVA) | payer OTHER, SELFPAY | PROVIDERS: Visit Provider Physician Assistant Surgical | DX: Z98.84 Bariatric surgery status (principal) ==